=== PATIENT | female | born 1990 | race Caucasian/White ===

== ENCOUNTER 2020-11-08 05:07 | Inpatient (IN) | payer MEDICAID, SELFPAY ==
--- NOTE | 2020-11-02 17:26 | ANES.PREANE2 ---
Pre-Anesthetic Assessment Pre-Anesthetic Assessment: Proposed Procedure: Operation Date: 11/08/20 07:00 Proposed Procedures p Section Repeat Z34.83 Z98.891 [id number](Not Applicable) - Brando Thomason MD Was Beta Livia taken within 24 hours: N/A Was Clonidine taken within 24 hours: N/A Social: Social History: No alcohol and No tobacco Exam: Pre-Anes Outpt Exam: alert, oriented x 3, clear to auscultation bilaterally and regular rate & rhythm Airway: Submandibular: WNL Cervical ROM: WNL MP: 1 History/ROS: No significant complaints Pulmonary: Pulmonary: None reported CV/HEM: CV/HEM: None reported : : None reported Hepatic: Hepatic: None reported GI: GI: None reported Metabolic: Metabolic: None reported Musc/skel: Musc/skel: None reported Neuropsych: Neuropsych: None reported Anesthetic Plan: ASA status: 1 Anesthesia: Regional (specify below) Other: Spinal Data Anesthesia Cardiac Studies: No Data to Display
[2020-11-08] VITALS (23 sets, daily range): BP systolic 116–137; BP diastolic 64–106; PULSE 73–106; RESP 15–16; TEMP 36.4–36.8; O2SAT 97–100; BMI 38.9
--- NOTE | 2020-11-08 05:38 | P.HP_ITS ---
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 I saw the patient earlier in her . At that time we discussed the risks of a as well as a tubal ligation. We discussed the risk of bleeding, infection, and damage intra-abdominal organs. We also discussed the 1 200 chance of becoming again after a successful tubal ligation. The patient understands all these things and wishes to proceed with a low transverse section. The patient has had an unremarkable her labs were within normal limits. She is HIV negative, hepatitis B-, H hepatitis C negative. Her drug screen was within normal limits. Her glucose screen was within normal limits. She was GBS negative. Review of Systems General: Reports: 10 or more systems reviewed and unremarkable except in HPI and below Const: Reports: fatigue; Denies: fever(s) Eyes: Denies: change in vision Card: Denies: chest pain Musc: Reports: back pain Aramis/Lymph: Denies: easy bruising Medications/Allergies Home Medications Medication Instructions Recorded Confirmed Last Taken Type omeprazole 20 mg PO DAILY 11/08/20 11/08/20 11/07/20 19:00 History Allergies Allergy/AdvReac Type Severity Reaction Status Date / Time latex Allergy ALGY-Hives Verified 11/08/20 07:06 Vitals/I&O/Wt Last Vital Signs Pulse 104 H 11/08/20 05:29 BP 118/72 11/08/20 05:29 Physical Exam Const: COMMON NORMALS: patient oriented x3 and alert HENMT: COMMON NORMALS: moist oral mucous membranes HEAD & SCALP: normal to inspection Chest: COMMONS NORMALS: normal inspection of the chest Resp: COMMON NORMALS: clear to auscultation bilaterally AUSCULTATION: clear to auscultation bilaterally Cardio: COMMON NORMALS: regular rate and regular rhythm RATE: regular rate RHYTHM: regular rhythm GI: INSPECTION: Yes normal to inspection and Yes other (Gravid) Extremity: COMMON NORMALS: normal to inspection GENERAL: Yes edema (Trace) Neuro: COMMON NORMALS: patient oriented x3, moves all extremities and no sensory deficits noted SENSORIUM/ORIENTATION: Yes alert Psych: COMMON NORMALS: mental status grossly normal Skin: COMMON NORMALS: no rashes or lesions noted GENERAL SKIN EXAM: no rashes or lesions noted Data : 11/09/20 00:38 A&P Assessment and plan (1) History of : We will proceed with a scheduled section and a bilateral tubal ligation. I once again discussed the risk with the patient and her . They wish to proceed. Status: Acute (2) Sterilization: Status: Acute (3) 39 weeks gestation of : Status: Acute Attestations Medical Necessity Statement*: I anticipate routine and post C- section care. Coding Level of Care Code Acute Order Manager for [facility] Fwd Exam Comprehensive Diagnoses History of Z98.891 Sterilization Z30.2 39 weeks gestation of Z3A.39
[2020-11-08 05:51] LABS: Basophils # 0.1 10^3/uL (0.0-0.1); Basophils % 0.4 %; Eosinophils # 0.1 10^3/uL (0.0-0.8); Eosinophils % 0.8 %; Hematocrit 37.9 % (37.0-47.0); Hemoglobin 10.9 g/dL (11.5-15.3); Lymphocytes # 2.6 10^3/uL (0.8-4.8); Lymphocytes % 23.4 %; Mean Corpuscular HGB Conc 28.8 g/dL (30.0-36.0); Mean Corpuscular Hemoglobin 23.9 pg (28.0-34.0); Mean Corpuscular Volume 82.9 fL (81-99); Mean Platelet Volume 12.6 fL (7.4-10.4); Monocytes # 0.9 10^3/uL (0.2-0.9); Neutrophils # 7.52 10^3/uL (1.8-7.7); Nucleated Red Blood Cells % 0 %; Platelet Count 235 10^3/cmm (130-400); Red Blood Count 4.57 10^6/uL (4.1-5.3); Red Cell Distribution Width 21.1 % (12.1-15.1); White Blood Count 11.2 10^3/uL (4.0-10.0)
[2020-11-08] MEDS: citric acid-sodium citrate 30 mL UDC PO (07:06)
[2020-11-08] MEDS: metoclopramide 5 mg/mL SDV 2 mL 10 MG IVP (07:07)
[2020-11-08] MEDS: famotidine 20 mg/2 mL INJ IVP (07:07)
--- NOTE | 2020-11-08 07:38 | PC.NURSE ---
PT AMBULATED TO OR 1 WITHOUT DIFFICULTY. ACCOMPANIED BY THIS OIL WELL LOGGING ENGINEER.
--- NOTE | 2020-11-08 09:15 | P.OP_ITS ---
Operative Report Date of procedure: November 08, 2020 Pre-op Diagnosis: 1. Repeat section 2. Desires sterilization Post-op diagnosis: same Procedure Done: 1. Repeat lower transverse section 2. Intraoperative bilateral tubal ligation using a modified Fabio technique Specimens removed/disposition: 1. Male with a weight of 9 pounds 9 ounces and Apgars of 8 and 9 2. Placenta with a three-vessel cord delivered intact 3. Bilateral fallopian tube segments with the right segment being tagged Pathology: other Surgeon: Brando Thomason Anesthesia: Epidural (spinal) Estimated blood loss (mL): 1,200 Complications: none Condition: stable Disposition: floor (ob) Brief History: Refer to history and physical Procedure: The patient was brought back to the operating room where she was prepped and draped in usual sterile fashion. Anesthesia was found to be adequate. A lower transverse skin incision was then made with a #10 blade. I then dissected down to the underlying subcutaneous tissue until arriving at the prerectal fascia. The fascia was then nicked with the scalpel bilaterally. The fascial incisions were then carried laterally with Garcia scissors. Attention was then turned to the superior aspect of the incision which was grasped with kochers and tented up away from the underlying rectus abdominis muscles. The muscles were then dissected away from the fascia manually, and later with Garcia scissors. Attention was then turned to the inferior aspect of the incision, and the fascia was dissected away from the underlying muscle in similar fashion. The rectus abdominis muscles were then spread manually. The peritoneum was entered manually. Excellent visualization of the uterus was noted. A lower transverse uterine incision was then made with a #10 blade. Upon arriving at the intrauterine cavity, the uterine incision was then extended manually. The infant was noted to be in vertex position. After attempting to deliver the baby multiple times I elected to use a Kiwi vacuum and easily deliver the baby in about 10 seconds.. After delivery of the head, the mouth and nose were suctioned at the site of the incision. There was no meconium. There was no nuchal cord. The remainder of the body was then delivered and placed on the abdomen. The cord was cut and clamped. The baby was then handed to the waiting nurse. The placenta was removed intact. The uterus was externalized. The intrauterine cavity was cleansed of any remaining debris. The uterine incision was reapproximated in 2 layers. The first layer was performed with 0 Vicryl in a running locked stitch. The second layer was an imbricating stitch also using 0 Vicryl. Attention was then turned to the left fallopian tube which was ligated cut and cauterized using a modified [place] technique with 0 plain gut. Attention was then turned to the right fallopian tube which was also ligated cut and cauterized in similar fashion. The uterine incision was then once again reexamined. The uterus was replaced into the abdomen. The peritoneum was then irrigated with warm saline. I reexamined the uterine incision and found it to be hemostatic. The rectus abdominis muscles were then reapproximated using 0 Vicryl in a running stitch. The fascia was then reapproximated using 0 Vicryl in running stitch. The skin was reapproximated using ilir. A sterile dressing was placed. All counts were correct x2. Both the mother and baby were in stable condition.
--- NOTE | 2020-11-08 09:45 | PC.NURSE ---
PT TRANSFERRED FROM OR 1 TO OB 10 VIA BED. PT ACCOMPANIED BY THIS SYSTEMS TEST ENGINEER. PT TOLERATED WELL.
[2020-11-08] MEDS: ondansetron 2 mg/ML SDV 2 mL 4 MG IVP ×2 (10:04→14:14)
[2020-11-08] MEDS: promethazine 25 mg/mL SDV 1 mL IM (11:09)
[2020-11-08] MEDS: dextrose 5%-lactated ringers 1,000 ML 125 ML IV ×2 (11:58→21:32)
[2020-11-08] MEDS: sodium chloride 0.9% 500 ML 999 ML IV ×2 (12:04→16:35)
[2020-11-08] MEDS: ibuprofen 800 mg tablet PO ×2 (16:35→20:58)
--- NOTE | 2020-11-08 17:42 | ANE.PACU2 ---
Inpatient post-anesthesia follow up: Airway intact: Yes Vital signs: Temperature 98.0 F Pulse Rate 92 Respiratory Rate 16 Blood Pressure 117/80 Pulse Oximetry 98 Oxygen Delivery Me thod Room Air Oxygen Flow Rate Fraction of Inspir ed Oxygen Hydration adequate: Yes Nausea and vomiting: No Pain level: 2 Mental status: Baseline
--- NOTE | 2020-11-08 17:45 | PC.NURSE ---
pt ambulated from chair to bathroom without difficulty.
[2020-11-09 00:42] LABS: Hematocrit 26.9 % (37.0-47.0); Hemoglobin 8.5 g/dL (11.5-15.3); Mean Corpuscular HGB Conc 31.6 g/dL (30.0-36.0); Mean Corpuscular Hemoglobin 24.2 pg (28.0-34.0); Mean Corpuscular Volume 76.6 fL (81-99); Mean Platelet Volume 12.7 fL (7.4-10.4); Platelet Count 184 10^3/cmm (130-400); Red Blood Count 3.51 10^6/uL (4.1-5.3); Red Cell Distribution Width 13.6 % (12.1-15.1); White Blood Count 13.3 10^3/uL (4.0-10.0)
[2020-11-09] MEDS: acetaminophen 325 mg Tablet 650 MG PO ×2 (01:55→06:43)
[2020-11-09 04:30] VITALS: BP 105/70; PULSE 79; RESP 14; TEMP 36.9; O2SAT 97
--- NOTE | 2020-11-09 07:13 | P.DS_ITS ---
Discharge Providers ALUMINUM SIDING APPLICATOR Date of Admission: 11/08/20 05:07 Date of Discharge: 11/09/20 Attending Provider at Admission: Brando Thomason MD Attending Provider at Discharge: Brando Thomason MD Primary Care Provider: Garth Miller MD Diagnoses at Discharge Discharge Diagnosis (1) History of : Status: Acute (2) Sterilization: Status: Acute (3) 39 weeks gestation of : Status: Acute Reason for Visit Reason for Visit: repeat c section Hospital Course Hospital Course The patient presented to the hospital yesterday for a repeat section and a bilateral tubal ligation. The procedure was unremarkable. Her course has also been unremarkable. Her bleeding has been within normal limits. Her pain is been well controlled. She is chosen not to use any narcotics for pain control. Her vital signs have been stable. Initially, she did have reduced urine output, but that resolved with IV boluses. She passed flatus yesterday afternoon. She has been breast-feeding well. Information Peripartum Data: Delivery Method: Physical Exam Narrative: EXAM NARRATIVE: She is in no acute distress Lungs are clear auscultation bilaterally Her heart has a regular rate and rhythm Her fundus is below the umbilicus and firm Her dressing is clean, dry and intact Her extremities have trace edema Urinary Catheter Management^: Hernandez: Cath Placed During This Visit: yes Reason for Continuing Indwelling Catheter: Perioperative Use in Selected Surgeries Urinary Catheter Date of Insertion: 11/08/20 Urinary Catheter Time of Insertion: 08:05 Discharge Data Data Completed and Pending: Pending at discharge Category Date Time Status Pathology: Surgic al [PTH] Routine Pth 11/08/20 08:30 Received Labs from last 24 hours 11/09/20 00:38 WBC 13.3 H RBC 3.51 L Hgb 8.5 L Hct 26.9 L MCV 76.6 L D MCH 24.2 L MCHC 31.6 D RDW 13.6 Plt Count 184 MPV 12.7 H Vitals: Last Vital Signs Temp 98.1 F 11/08/20 18:00 Pulse 73 11/08/20 22:00 Resp 15 11/08/20 22:00 BP 116/77 11/08/20 22:00 Pulse Ox 98 11/08/20 22:00 Discharge Plan Discharge Patient Disposition: Home Condition: Stable Prescriptions: New ibuprofen 800 mg Tablet 800 mg PO TID Qty: 45 RF: 0 DOK 100 mg Capsule 100 mg PO BID Qty: 14 RF: 0 ferrous sulfate 325 mg (65 mg iron) Tablet,Delayed Release (Dr/Ec) 325 mg PO BID Qty: 60 RF: 0 -U 106.5-1 mg Capsule 1 cap PO BREAKFAST Qty: 90 RF: 3 Continued omeprazole 20 mg Tablet,Delayed Release (Dr/Ec) 20 mg PO DAILY RF: 0 Discharge Orders: Discharge Order (Routine); Ordered 11/09/20 Ordered By: Brando Thomason Referrals: Brando Thomason MD [Physician] - 4-7 days (Also set up appointment with Dr. Miller in 6 weeks for check) Discharge Diet: Usual diet Discharge Activity: Limit activity as instructed Discharge Attestations ALUMINUM SIDING APPLICATOR Time Spent in Discharge Care*: less than 30 min Specific Discharge Activities: Specific discharge activities: educating patient Coding Level of Care Code Acute Stripper Apprentice for g Fwd Diagnoses History of Z98.891 Sterilization Z30.2 39 weeks gestation of Z3A.39
[2020-11-09] MEDS: docusate sodium 100 mg Capsule PO (08:42)
[2020-11-09] MEDS: ibuprofen 800 mg tablet PO (08:42)
[2020-11-09] MEDS: prenatal vitamin Capsule 1 CAP PO (08:42)
[2020-11-09 12:00] VITALS: BP 105/70; PULSE 79; RESP 14; TEMP 36.9; O2SAT 97
== END 2020-11-09 12:05 | disposition home or self-care (01) | DRG 785 ==
PROVIDERS: Admitting Provider Family Medicine; PCP Family Medicine; Visit Provider Family Medicine
PROC: 10D00Z1 Extraction of Products of Conception, Low, Open Approach (ICD-10-PCS; CPT 59514; principal; 2020-11-08 07:30)
DX: O34.211 Maternal care for low transverse scar from previous cesarean delivery (principal); Z3A.39 39 weeks gestation of pregnancy; Z37.0 Single live birth; Z30.2 Encounter for sterilization
CPT/HCPCS: 12345; 36415; 58611; 59025; 59409; 85025; 85027; 88302; 96372; 96374; 96375; 98960; J0690; J2405; J2550; J2765; J3490; J7040

== ENCOUNTER 2022-02-14 14:33 | Outpatient (CLI) | payer MEDICAID, SELFPAY ==
[2022-02-14 15:29] LABS: Basophils # 0.1 10^3/uL (0.0-0.1); Basophils % 0.7 %; Eosinophils # 0.1 10^3/uL (0.0-0.8); Hematocrit 40.9 % (37.0-47.0); Hemoglobin 13.2 g/dL (11.5-15.3); Lymphocytes # 2.3 10^3/uL (0.8-4.8); Lymphocytes % 31.8 %; Mean Corpuscular HGB Conc 32.3 g/dL (30.0-36.0); Mean Corpuscular Hemoglobin 26.1 pg (28.0-34.0); Mean Corpuscular Volume 80.8 fl (81-99); Mean Platelet Volume 13.1 fL (7.4-10.4); Monocytes # 0.6 10^3/uL (0.2-0.9); Monocytes % 8.7 %; Neutrophils # 4.11 10^3/uL (1.8-7.7); Neutrophils % 57.5 %; Nucleated Red Blood Cells % 0 %; Platelet Count 256 10^3/cmm (130-400); Red Blood Count 5.06 10^6/uL (4.1-5.3); Red Cell Distribution Width 14.4 % (12.1-15.1); White Blood Count 7.1 10^3/uL (4.0-10.0)
[2022-02-14 16:05] LABS: Slide Review Slide Review Perform
[2022-02-14 17:10] LABS: 25 Hydroxy Vitamin D 30 ng/mL (30-100); Alanine Aminotransferase 26 U/L (0-33); Albumin Level 4.2 g/dL (3.5-5.2); Alkaline Phosphatase 86 U/L (35-105); Anion Gap 17.4 (5-19); Aspartate Amino Transferase 26 U/L (0-32); Blood Urea Nitrogen 10 mg/dL (6-20); Calcium 8.8 mg/dL (8.5-10.5); Carbon Dioxide 24 mmol/L (22-29); Chloride 102 mmol/L (98-107); Chol HDL Ratio 3.58 mg/dL (0.0-4.40); Cholesterol 136 mg/dL (0-200); Globulin 2.5 g/dL (1.3-4.6); Glomerular Filtration Rate 98.9 mL/min (90-130); Glucose 96 mg/dL (65-115); HDL Cholesterol 38 mg/dL (60-100); LDL Cholesterol Calculated 53 mg/dL (50-129); LDL HDL Ratio 1.39 RATIO (0.00-3.22); Osmolality Calculated 289 mOsm/kg (285-295); Potassium 3.4 mmol/L (3.5-5.1); Sodium 140 mmol/L (136-145); Thyroid Stimulating Hormone 0.62 uIU/mL (0.27-4.20); Total Bilirubin 0.4 mg/dL (0.15-1.2); Total Protein 6.7 g/dL (6.6-8.7); Triglycerides 226 mg/dL (0-150)
== END 2022-02-14 14:34 | disposition home or self-care (01) ==
PROVIDERS: PCP Family Medicine; Visit Provider Family Medicine
DX: Z13.220 Encounter for screening for lipoid disorders (principal); R79.9 Abnormal finding of blood chemistry, unspecified
CPT/HCPCS: 80053; 80061; 82306; 84443; 85025

== ENCOUNTER 2024-02-01 08:48 | Outpatient (CLI) | payer OTHER, SELFPAY ==
[2024-02-01 09:48] LABS: HIV 1 & 2 Antibody Non-Reactive (Non-Reactiv); HIV 1 & 2 Antigen Non-Reactive (Non-Reactiv)
[2024-02-01 09:56] LABS: Hepatitis C Virus Antibody Non-Reactive (Nonreactive)
[2024-02-02 18:09] LABS: Chlamydia Trachomatis RNA TMA NOT DETECTED (NOT DETECTED); Neisseria Gonorrhoeae RNA, TMA NOT DETECTED (NOT DETECTED)
== END 2024-02-01 08:49 | disposition home or self-care (01) ==
LOC: LAB 08:52
PROVIDERS: PCP Family Medicine; Visit Provider Family Medicine
DX: Z11.59 Encounter for screening for other viral diseases (principal); Z11.4 Encounter for screening for human immunodeficiency virus [HIV]; Z20.2 Contact with and (suspected) exposure to infections with a predominantly sexual mode of transmission
CPT/HCPCS: 36415; 86803; 87491; 87591; 87806

== ENCOUNTER 2024-03-21 07:25 | Outpatient (CLI) | payer OTHER, SELFPAY ==
[2024-03-21 08:16] LABS: Estradiol 486.8 pg/mL; Luteinizing Hormone 2.9 mIU/mL (0.5-41.7); Progesterone 0.308 ng/mL
== END 2024-03-21 07:26 | disposition home or self-care (01) ==
LOC: LAB 07:26
PROVIDERS: PCP Family Medicine; Visit Provider Obstetrics & Gynecology
DX: E28.8 Other ovarian dysfunction (principal)
CPT/HCPCS: 36415; 82670; 83002; 84144

== ENCOUNTER 2024-05-23 10:50 | Outpatient (CLI) | payer OTHER, SELFPAY | END 2024-05-23 10:51 | disposition home or self-care (01) | LOC: LAB 10:51 | PROVIDERS: PCP Family Medicine; Visit Provider Family Medicine | DX: N98.2 Complications of attempted introduction of fertilized ovum following in vitro fertilization (principal) | CPT/HCPCS: 36415; 84702 ==

== ENCOUNTER 2024-05-27 07:22 | Outpatient (CLI) | payer OTHER, SELFPAY ==
[2024-05-27 08:04] LABS: HCG Quantitative 46.44 mIU/mL
== END 2024-05-27 07:23 | disposition home or self-care (01) ==
LOC: LAB 07:24
PROVIDERS: PCP Family Medicine; Visit Provider Obstetrics & Gynecology
DX: Z32.02 Encounter for pregnancy test, result negative (principal)
CPT/HCPCS: 36415; 84702

== ENCOUNTER 2024-05-29 07:13 | Outpatient (CLI) | payer OTHER, SELFPAY | END 2024-05-29 07:14 | disposition home or self-care (01) | LOC: LAB 07:15 | PROVIDERS: PCP Family Medicine; Visit Provider Obstetrics & Gynecology | DX: Z01.89 Encounter for other specified special examinations (principal) | CPT/HCPCS: 36415; 84702 ==

== ENCOUNTER 2024-06-01 05:58 | Emergency (ER) | payer OTHER, MEDICAID, SELFPAY ==
--- NOTE | 2024-06-01 06:01 | USR_ITS ---
PROCEDURE INFORMATION: Exam: US , Transvaginal Exam date and time: 06/01/2024 7:15 AM Age: 34 years old Clinical indication: Lmp or gestational age (in weeks): 4w4d; Antepartum complications; Bleeding; Additional info: Threatened miscarriage LABS AND CLINICAL REPORTS: Gestational age (Established): 4 w 4 d Estimated due date (Established): 02/04/2025 TECHNIQUE: Imaging protocol: Real-time transvaginal obstetrical ultrasound of the maternal pelvis with image documentation. Transvaginal imaging was used for better evaluation of the fetus, adnexa, and/or cervix. 189image(s) are provided. COMPARISON: [place] [id number] 08/23/2020 8:48 AM FINDINGS: MATERNAL: Uterus: Uterus measures 7.3 x 4.9 x 4.2 cm. Endometrial stripe thickness is around 1.1 cm. No significant central uterine canal fluid collections are appreciated. The uterine parenchymal echogenicity appears relatively homogeneous overall. No localized fluid to suggest intrauterine gestational changes are currently appreciated. Cervix: Cervical length measures 4.2 cm. There are some cervical nabothian cystic changes suggested. No cervix level fluid collections are currently appreciated. Right ovary/adnexa: There are some subcentimeter right ovarian follicular cystic changes present. The right ovary measures 2.5 x 2.1 x 2.1 cm with some color flow present. Left ovary/adnexa: The left ovary measures 2.8 x 2.6 x 1.8 cm with some color flow present. There are some subcentimeter left ovarian follicular cystic changes present. Bowel: There is some bowel-gas artifact. Intraperitoneal space: No significant free fluid collections are appreciated. US/US OB <=14 wk fetus w transvag IMPRESSION: 1. No evidence of intrauterine or extrauterine gestational changes are currently appreciated. Consider beta HCG, clinical evaluation. 2. Ovarian color flow is demonstrated bilaterally. 3. No significant free fluid collections are appreciated.
[2024-06-01 06:35] VITALS: BP 136/87; PULSE 103; RESP 19; TEMP 36.6; O2SAT 99
[2024-06-01 06:45] LABS: Basophils # 0.1 10^3/uL (0.0-0.1); Basophils % 1.2 %; Eosinophils % 0.7 %; Hematocrit 41.7 % (36-47); Lymphocytes # 1.8 10^3/uL (0.8-4.8); Mean Corpuscular HGB Conc 31.9 g/dL (30-55); Mean Corpuscular Hemoglobin 25.5 pg (27-33); Mean Platelet Volume 11.9 fL (7.4-10.4); Monocytes # 0.4 10^3/uL (0.2-0.9); Monocytes % 7.6 %; Neutrophils # 3.45 10^3/uL (1.8-7.7); Neutrophils % 59.3 %; Nucleated Red Blood Cells % 0 %; Platelet Count 290 10^3/cmm (157-399); Red Blood Count 5.21 10^6/uL (3.85-5.65); Red Cell Distribution Width 13.5 % (12.1-15.1); White Blood Count 5.81 10^3/uL (3.29-11.43)
--- NOTE | 2024-06-01 06:46 | W.ED.FEMALGU ---
HPI - Female Genitourinary General: Chief complaint: Urogenital-Female Stated complaint: 4 weeks , bleeding Time Seen by Provider: 06/01/24 06:41 Source: patient Mode of arrival: ambulatory Limitations: no limitations History of Present Illness: 34-year-old female is currently 4 weeks she states she has been going through IVF states she had had some bleeding that started last night. She states that she has passed some very small clots no heavy bleeding. She denies any severe pain denies any vomiting or diarrhea. Associated symptoms: Deny abdominal pain, headache(s) or nausea Related Data Home Medications Medication Instructions Recorded Confirmed Jean-Claude Niagen 300 mg PO DAILY 03/10/24 03/10/24 cholecalciferol (vitamin D3) 25 25 mcg PO DAILY 03/10/24 03/10/24 mcg (1,000 unit) capsule coenzyme Q10 300 mg capsule (Co 600 mg PO DAILY 03/10/24 03/10/24 Q-10) methylfolate 2 mg PO DAILY 03/10/24 omega-3 fatty acids 1,000 mg 2,000 mg PO DAILY 03/10/24 03/10/24 capsule prasterone (dhea) 25 mg tablet 25 mg PO DAILY 03/10/24 03/10/24 (DHEA) vitamin#30 30 mg iron-10 1 cap PO DAILY 03/10/24 03/10/24 mg iron-folic acid 1 mg-omg3 capsule vitamin B complex 1 cap PO DAILY 03/10/24 03/10/24 Previous Rx's Medication Instructions Recorded cetrorelix 0.25 mg subcutaneous 0.25 mg SUBCUT DAILY #1 ea 03/10/24 kit (Cetrotide) chorionic gonadotropin, human 1,000 - 10,000 unit IM ONCE #1 ea 03/10/24 10,000 unit IM powder for solution follitropin angie 300 unit (0.5 mL) SUBCUT DAILY 03/10/24 #1.5 mL leuprolide 1 mg/0.2 mL 1 mg (0.2 mL) SUBCUT DAILY #1 ea 03/10/24 subcutaneous kit menotropins 75 unit subcutaneous 75 unit SUBCUT DAILY #10 ea 03/10/24 solution (Menopur) Allergies Allergy/AdvReac Type Severity Reaction Status Date / Time latex Allergy ALGY-Hives Verified 03/10/24 08:32 Review of Systems Const: Denies: fever(s), chills, body aches or change in appetite ENMT: Denies: throat pain or dental pain Card: Denies: chest pain Resp: Denies: dyspnea GI: Denies: abdominal pain, nausea or vomiting : Reports: vaginal bleeding Musc: Denies: neck pain or back pain Neuro: Denies: headache(s) Physical Exam Const: COMMON NORMALS: no acute distress, patient oriented x3 and healthy appearing HENMT: COMMON NORMALS: normocephalic and atraumatic HEAD & SCALP: normocephalic and atraumatic Eye: COMMON NORMALS: conjunctivae normal CONJUNCTIVA: Yes conjunctivae normal Neck/C-Spine: COMMON NORMALS: full ROM and supple Chest: COMMONS NORMALS: normal inspection of the chest Resp: COMMON NORMALS: normal respiratory effort Cardio: COMMON NORMALS: regular rate RATE: regular rate GI: COMMON NORMALS: Normal to inspection, nondistended, normoactive bowel sounds present, Soft to palpation, non-tender and no masses PALPATION: Yes Soft to palpation Extremity: COMMON NORMALS: normal to inspection and full ROM Neuro: COMMON NORMALS: patient oriented x3, moves all extremities and no focal motor deficits Psych: COMMON NORMALS: mental status grossly normal, Normal thought process present and cooperative THOUGHT PROCESS: Normal thought process present Skin: COMMON NORMALS: no rashes or lesions noted and no wounds GENERAL SKIN EXAM: no rashes or lesions noted Course Vital Signs: Vital signs: Vital Signs Temperature 98 F 06/01/24 06:35 Pulse Rate 103 H 06/01/24 06:35 Respiratory Rate 19 H 06/01/24 06:35 Blood Pressure 136/87 06/01/24 06:35 Pulse Oximetry 99 06/01/24 06:35 [facility] - Female Medical Decision Making Patient presents here with a threatened miscarriage quantitative still quite low she is very early ultrasound showed no definite IUP no signs of ectopic she has appoint with her OB tomorrow she is to follow-up as scheduled return if worsening she understands agrees to plan Medical Records I reviewed the patient's medical records. Lab Data I reviewed the patient's lab results. 06/01/24 06:30 Radiology Impressions Obstetrics Ultrasound 06/01/24 06:01 IMPRESSION: 1. No evidence of intrauterine or extrauterine gestational changes are currently appreciated. Consider beta HCG, clinical evaluation. 2. Ovarian color flow is demonstrated bilaterally. 3. No significant free fluid collections are appreciated. Laboratory Results WBC 5.81 10^3/uL (3.29-11.43) 06/01/24 06:30 RBC 5.21 10^6/uL (3.85-5.65) 06/01/24 06:30 Hgb 13.30 g/dL (11.27-16.99) 06/01/24 06:30 Hct 41.7 % (36-47) 06/01/24 06:30 MCV 80.0 fl (85-98) L 06/01/24 06:30 MCH 25.5 pg (27-33) L 06/01/24 06:30 MCHC 31.9 g/dL (30-55) 06/01/24 06:30 RDW 13.5 % (12.1-15.1) 06/01/24 06:30 Plt Count 290 10^3/cmm (157-399) 06/01/24 06:30 MPV 11.9 fL (7.4-10.4) H 06/01/24 06:30 Neut % (Auto) 59.3 % 06/01/24 06:30 Lymph % (Auto) 31.0 % 06/01/24 06:30 [place] % (Auto) 7.6 % 06/01/24 06:30 Eos % (Auto) 0.7 % 06/01/24 06:30 Baso % (Auto) 1.2 % 06/01/24 06:30 Neut # (Auto) 3.45 10^3/uL (1.8-7.7) 06/01/24 06:30 Lymph # (Auto) 1.8 10^3/uL (0.8-4.8) 06/01/24 06:30 [place] # (Auto) 0.4 10^3/uL (0.2-0.9) 06/01/24 06:30 Eos # (Auto) 0.0 10^3/uL (0.0-0.8) 06/01/24 06:30 Baso # (Auto) 0.1 10^3/uL (0.0-0.1) 06/01/24 06:30 Nucleated RBC % (auto) 0 % 06/01/24 06:30 Nucleated RBCs # 0.0 /100WBC 06/01/24 06:30 Ser , Semi-Qnt 522.10 mIU/mL 06/01/24 06:30 Blood Type O Positive 06/01/24 06:30 Rho(D) Type Rh positive 06/01/24 06:30 Antibody Screen Negative 06/01/24 06:30 All radiology interpretation(s) finalized by discharge Discharge Plan Discharge Patient Disposition: Home Clinical Impression: Threatened miscarriage Condition: Stable Prescriptions: No Action PNV #[id number] acid-omega3 30 mg iron-10 mg iron-1 mg capsule 1 cap PO DAILY vitamin B complex Capsule 1 cap PO DAILY omega-3 fatty acids 1,000 mg capsule 2,000 mg PO DAILY cholecalciferol (vitamin D3) 25 mcg (1,000 unit) capsule 25 mcg PO DAILY prasterone (dhea) [DHEA] 25 mg tablet 25 mg PO DAILY Jean-Claude Niagen 300 mg tablet 300 mg PO DAILY Co Q-10 300 mg capsule 600 mg PO DAILY methylfolate 2 mg 2 mg PO DAILY cetrorelix [Cetrotide] 0.25 mg kit 0.25 mg SUBCUT DAILY Qty: 1 5RF Rx Instructions: inject subcutaneously once daily as directed follitropin angie 900/1.5 unit/mL pen injector 300 unit SUBCUT DAILY Qty: 1.5 5RF Rx Instructions: inject 300 units subcutaneously once daily as directed Menopur 75 unit recon soln 75 unit SUBCUT DAILY Qty: 10 3RF Rx Instructions: inject 75 units subcutaneously once daily (for 8-13 days) as directed chorionic gonadotropin, human 10,000 unit recon soln 1,000 - 10,000 unit IM ONCE Qty: 1 1RF Rx Instructions: inject 1,000-10,000 units as directed by Dr. Mayes's office leuprolide 1 mg/0.2 mL kit 1 mg SUBCUT DAILY Qty: 1 1RF Rx Instructions: inject 0.8 mL under the skin one time when directed by Dr. Mayes Discharge Orders: Discharge ED (Routine); Ordered 06/01/24 Ordered By: Kisha Amezquita Referrals: Kael Dangelo DO [Primary Care Provider] - Lizandro Marquis MD [Physician] - 4-7 days Discharge Diet: Advance as tolerated Discharge Activity: Resume usual activity Patient Instructions: Threatened Miscarriage (ED) Coding Level of Care Code ED Incident Response Consultant for Carlos Eduardo Bright
[2024-06-01 08:15] VITALS: BP 142/92; PULSE 109; O2SAT 96
== END 2024-06-01 08:15 | disposition home or self-care (01) ==
PROVIDERS: Emergency Provider Emergency Medicine; PCP Family Medicine
DX: O20.0 Threatened abortion (principal); Z3A.01 Less than 8 weeks gestation of pregnancy
CPT/HCPCS: 36415; 76801; 76817; 84702; 85025; 86850; 86900; 99284

== ENCOUNTER → 2024-06-02 15:02 | Outpatient (BNVA) | payer OTHER, MEDICAID, SELFPAY | PROVIDERS: PCP Family Medicine; Visit Provider Nurse Practitioner Women's Health | DX: O03.9 Complete or unspecified spontaneous abortion without complication (principal); Z32.01 Encounter for pregnancy test, result positive | CPT/HCPCS: 81025; 84144; 84702 ==

== ENCOUNTER 2024-06-03 07:37 | Outpatient (CLI) | payer OTHER, SELFPAY | END 2024-06-03 07:38 | disposition home or self-care (01) | LOC: LAB 07:38 | PROVIDERS: PCP Family Medicine; Visit Provider Obstetrics & Gynecology | DX: O20.0 Threatened abortion (principal) | CPT/HCPCS: 36415; 84702 ==

== ENCOUNTER 2024-06-05 07:21 | Outpatient (CLI) | payer OTHER, SELFPAY ==
[2024-06-05 09:00] LABS: Progesterone 26.75 ng/mL
== END 2024-06-05 07:22 | disposition home or self-care (01) ==
LOC: LAB 07:22
PROVIDERS: PCP Family Medicine; Visit Provider Nurse Practitioner Women's Health
DX: O20.0 Threatened abortion (principal)
CPT/HCPCS: 36415; 84144; 84702

== ENCOUNTER 2024-06-28 14:10 | Emergency (ER) | payer OTHER, SELFPAY ==
[2024-06-28 14:20] VITALS: BP 145/96; PULSE 85; RESP 16; TEMP 36.4; O2SAT 100; BMI 28.6
--- NOTE | 2024-06-28 15:04 | ED_ITS ---
HPI - 2 General: Chief complaint: OB/Uterine Contractions Stated complaint: spotting 8 wk preg Time Seen by Provider: 06/28/24 14:45 History of Present Illness: 34-year-old female presents to the [facility] ency room with complaint of vaginal bleeding. Patient is G5, P4 approximately 8 weeks 3 days by IVF she has been on progesterone they are starting to taper it off. She was seen in [place] for this she is planning to transition her care locally to Dr. Thomason. She has known subchorionic hemorrhage she passed a clot today and was concerned. Associated symptoms: Deny abdominal pain or dysuria Related Data Home Medications Medication Instructions Recorded Confirmed Jean-Claude Niagen 300 mg PO DAILY 03/10/24 06/02/24 cholecalciferol (vitamin D3) 25 25 mcg PO DAILY 03/10/24 06/02/24 mcg (1,000 unit) capsule coenzyme Q10 300 mg capsule (Co 600 mg PO DAILY 03/10/24 06/02/24 Q-10) methylfolate 2 mg PO DAILY 03/10/24 06/02/24 omega-3 fatty acids 1,000 mg 2,000 mg PO DAILY 03/10/24 06/02/24 capsule prasterone (dhea) 25 mg tablet 25 mg PO DAILY 03/10/24 06/02/24 (DHEA) vitamin#30 30 mg iron-10 1 cap PO DAILY 03/10/24 06/02/24 mg iron-folic acid 1 mg-omg3 capsule vitamin B complex 1 cap PO DAILY 03/10/24 06/02/24 Previous Rx's Medication Instructions Recorded cetrorelix 0.25 mg subcutaneous 0.25 mg SUBCUT DAILY #1 ea 03/10/24 kit (Cetrotide) chorionic gonadotropin, human 1,000 - 10,000 unit IM ONCE #1 ea 03/10/24 10,000 unit IM powder for solution follitropin angie 300 unit (0.5 mL) SUBCUT DAILY 03/10/24 #1.5 mL leuprolide 1 mg/0.2 mL 1 mg (0.2 mL) SUBCUT DAILY #1 ea 03/10/24 subcutaneous kit menotropins 75 unit subcutaneous 75 unit SUBCUT DAILY #10 ea 03/10/24 solution (Menopur) Allergies Allergy/AdvReac Type Severity Reaction Status Date / Time latex Allergy ALGY-Hives Verified 06/02/24 11:56 Review of Systems 2 Const: Denies: fever(s) or chills Card: Denies: chest pain Resp: Denies: dyspnea GI: Denies: abdominal pain : Denies: dysuria, urinary frequency or urinary urgency Musc: Denies: neck pain or back pain Skin/Breast: Denies: rash PFSH ED 2 PFSH: Medical History (Updated 06/28/24 @ 17:45 by Pool Null DO) Bleeding in early Family History Denies family history of Ovarian cancer Diabetes Heart disease Breast cancer Hypertension Uterine cancer Thyroid disease Stroke Social History Smoking and tobacco/nicotine status: current every day tobacco/nicotine user (VAPE 06/2023 CIG 2013) Physical Exam 2 Const: COMMON NORMALS: no acute distress GENERAL APPEARANCE: cooperative and comfortable ORIENTATION/CONSCIOUSNESS: Yes awake, Yes oriented to person, Yes oriented to place and Yes oriented to time HENMT: COMMON NORMALS: normocephalic, atraumatic and hearing grossly normal bilaterally HEAD & SCALP: normocephalic and atraumatic Neuro: SENSORIUM/ORIENTATION: Yes oriented to person, Yes oriented to place and Yes oriented to time Skin: COMMON NORMALS: no rashes or lesions noted GENERAL SKIN EXAM: no rashes or lesions noted Course 2 Vital Signs: Vital signs: Vital Signs Temperature 97.5 F L 06/28/24 14:20 Pulse Rate 80 06/28/24 15:24 Respiratory Rate 16 06/28/24 14:20 Blood Pressure 145/96 06/28/24 14:20 Pulse Oximetry 100 06/28/24 15:24 Oxygen Delivery Me thod Room Air 06/28/24 14:20 MDM - OB/Uterine Contractions Medical Decision Making CBC and CMP unremarkable. Progesterone greater than 60. Her beta-hCG is climbed to 59,000. UA a is negative. Ultrasound confirms intrauterine with good heart tones. There is a subchorionic hemorrhage which is described as small consistent with her previous ultrasound. Suspect that this is the source of her bleeding. She is concerned about continuing the progesterone. With her level such as it is taking extra dose not likely to be helpful recommend that she contact her OB team from [place] regarding this. Will discharge patient home continue previous prescriptions as prescribed by her physicians. I advised her there is potential she could pass little more blood with a subchorionic hemorrhage that was seen. Contact her primary OB us if she is able on Sunday. Medical Records I reviewed the patient's medical records. Lab Data I reviewed the patient's lab results. 06/28/24 15:09 06/28/24 15:09 Radiology Impressions Obstetrics Ultrasound 06/28/24 15:05 IMPRESSION: Single living intrauterine measuring 8 weeks and 5 days, compatible with provided date by LMP. Small volume of subchorionic hemorrhage. Attention on follow-up imaging. Laboratory Results WBC 10.26 10^3/uL (3.29-11.43) 06/28/24 15:09 RBC 5.05 10^6/uL (3.85-5.65) 06/28/24 15:09 Hgb 13.20 g/dL (11.27-16.99) 06/28/24 15:09 Hct 39.7 % (36-47) 06/28/24 15:09 MCV 78.6 fl (85-98) L 06/28/24 15:09 MCH 26.1 pg (27-33) L 06/28/24 15:09 MCHC 33.2 g/dL (30-55) 06/28/24 15:09 RDW 13.2 % (12.1-15.1) 06/28/24 15:09 Plt Count 267 10^3/cmm (157-399) 06/28/24 15:09 MPV 11.5 fL (7.4-10.4) H 06/28/24 15:09 Neut % (Auto) 65.0 % 06/28/24 15:09 Lymph % (Auto) 24.3 % 06/28/24 15:09 [place] % (Auto) 8.9 % 06/28/24 15:09 Eos % (Auto) 0.8 % 06/28/24 15:09 Baso % (Auto) 0.7 % 06/28/24 15:09 Neut # (Auto) 6.68 10^3/uL (1.8-7.7) 06/28/24 15:09 Lymph # (Auto) 2.5 10^3/uL (0.8-4.8) 06/28/24 15:09 [place] # (Auto) 0.9 10^3/uL (0.2-0.9) 06/28/24 15:09 Eos # (Auto) 0.1 10^3/uL (0.0-0.8) 06/28/24 15:09 Baso # (Auto) 0.1 10^3/uL (0.0-0.1) 06/28/24 15:09 Nucleated RBC % (auto) 0 % 06/28/24 15:09 Nucleated RBCs # 0.0 /100WBC 06/28/24 15:09 Sodium 135 mmol/L (136-145) L 06/28/24 15:09 Potassium 3.9 mmol/L (3.5-5.1) 06/28/24 15:09 Chloride 98 mmol/L (98-107) 06/28/24 15:09 Carbon Dioxide 20 mmol/L (22-29) L 06/28/24 15:09 Anion Gap 20.9 (5-19) H 06/28/24 15:09 BUN 7 mg/dL (6-20) 06/28/24 15:09 Creatinine 0.6 mg/dL (0.5-0.9) 06/28/24 15:09 GFR Calculation 115.9 mL/min (90-130) 06/28/24 15:09 Glucose 95 mg/dL (65-115) 06/28/24 15:09 Calculated Osmolality 278 mOsm/kg (285-295) L 06/28/24 15:09 Calcium 9.6 mg/dL (8.5-10.5) 06/28/24 15:09 Total Bilirubin 0.2 mg/dL (0.15-1.2) 06/28/24 15:09 AST 14 U/L (0-32) 06/28/24 15:09 ALT 12 U/L (0-33) 06/28/24 15:09 Alkaline Phosphatase 83 U/L (35-105) 06/28/24 15:09 Total Protein 7.3 g/dL (6.6-8.7) 06/28/24 15:09 Albumin 4.1 g/dL (3.5-5.2) 06/28/24 15:09 Globulin 3.2 g/dL (1.3-4.6) 06/28/24 15:09 Progesterone > 60 ng/mL 06/28/24 15:09 Ser , Semi-Qnt 58883.00 mIU/mL 06/28/24 15:09 Urine Color Yellow (Yellow) 06/28/24 15:21 Urine Appearance Clear (CLEAR) 06/28/24 15:21 Urine pH 5.5 (5-7) 06/28/24 15:21 Ur Specific [place] 1.021 (1.005-1.030) 06/28/24 15:21 Urine Protein Negative (Negative) 06/28/24 15:21 Urine Glucose (UA) Negative (Normal) 06/28/24 15:21 Urine Ketones 1+ (Negative) H 06/28/24 15:21 Urine Blood Negative (Negative) 06/28/24 15:21 Urine Nitrate Negative (Negative) 06/28/24 15:21 Urine Bilirubin Negative (Negative) 06/28/24 15:21 Urine Urobilinogen 0.2 mg/dL (Negative) 06/28/24 15:21 Ur Leukocyte Esterase Negative (Negative) 06/28/24 15:21 Urine RBC 0-2 /hpf (0-2) 06/28/24 15:21 Urine WBC 0-5 /hpf (0-5) 06/28/24 15:21 Ur Squamous Epith Cells 0-5 /hpf (0-5) 06/28/24 15:21 Amorphous Sediment Not Reportable 06/28/24 15:21 Urine Bacteria None seen /hpf (NONE) 06/28/24 15:21 Hyaline Casts 0.81 /lpf 06/28/24 15:21 Urine Mucus 1+ /hpf 06/28/24 15:21 All radiology interpretation(s) finalized by discharge Discharge Plan Discharge Patient Disposition: Home Clinical Impression: Subchorionic hemorrhage in first trimester Condition: Stable Prescriptions: No Action PNV #[id number] 30 mg iron-10 mg iron-1 mg capsule 1 cap PO DAILY vitamin B complex Capsule 1 cap PO DAILY omega-3 fatty acids 1,000 mg capsule 2,000 mg PO DAILY cholecalciferol (vitamin D3) 25 mcg (1,000 unit) capsule 25 mcg PO DAILY prasterone (dhea) [DHEA] 25 mg tablet 25 mg PO DAILY Jean-Claude Niagen 300 mg tablet 300 mg PO DAILY Co Q-10 300 mg capsule 600 mg PO DAILY methylfolate 2 mg 2 mg PO DAILY cetrorelix [Cetrotide] 0.25 mg kit 0.25 mg SUBCUT DAILY Qty: 1 5RF Rx Instructions: inject subcutaneously once daily as directed follitropin angie 900/1.5 unit/mL pen injector 300 unit SUBCUT DAILY Qty: 1.5 5RF Rx Instructions: inject 300 units subcutaneously once daily as directed Menopur 75 unit recon soln 75 unit SUBCUT DAILY Qty: 10 3RF Rx Instructions: inject 75 units subcutaneously once daily (for 8-13 days) as directed chorionic gonadotropin, human 10,000 unit recon soln 1,000 - 10,000 unit IM ONCE Qty: 1 1RF Rx Instructions: inject 1,000-10,000 units as directed by Dr. Mayes's office leuprolide 1 mg/0.2 mL kit 1 mg SUBCUT DAILY Qty: 1 1RF Rx Instructions: inject 0.8 mL under the skin one time when directed by Dr. Mayes Discharge Orders: Discharge ED (Routine); Ordered 06/28/24 Ordered By: Pool Null Referrals: Brando Thomason MD [Primary Care Provider] - Patient Instructions: Opioid Safety, Pain Management Activity Restrictions/Additional Instructions: Thank you for choosing [facility] for your healthcare needs today. It is very important that you follow up as instructed or that you return to the Emergency Department should you have concerns or if your condition changes or worsens in any way. You were seen in the emergency room with complaint of vaginal bleeding. An ultrasound was done today and compared to an ultrasound done on June 19 there was a small subchorionic hemorrhage at the time of the ultrasound in June to today's ultrasound also shows Subchorionic hemorrhage. activity and heart tones on today's ultrasound were normal. Follow-up with your [employer] doctor later that next week. Stand Alone Forms: Work/School Release Coding Level of Care Code ED Central Office Supervisor for Carlos Eduardo Bright
--- NOTE | 2024-06-28 15:05 | USR_ITS ---
PROCEDURE INFORMATION: Exam: US First Trimester, Transabdominal and US , Transvaginal Exam date and time: 06/28/2024 4:16 PM Age: 34 years old Clinical indication: Lmp or gestational age (in weeks): 8 w 5d; Antepartum complications; Bleeding; ; Additional info: 8 weeks gestation, of vaginal bleeding, ivf LABS AND CLINICAL REPORTS: Gestational age (Established): 8 w 3 d Estimated due date (Established): 02/04/2025 TECHNIQUE: Imaging protocol: Real-time transabdominal obstetrical ultrasound of the maternal pelvis and a first trimester , less than 14 weeks 0 days, with image documentation. Transvaginal imaging was used for better evaluation of the fetus, adnexa, and/or cervix. COMPARISON: US OB transvaginal [id number] 06/19/2024 1:57 PM FINDINGS: GESTATION: Gestation: Single intrauterine gestational sac with yolk sac and embryo. Yolk sac measures 3.6 mm. Embryo/ cardiac activity (BPM): heart rate measures 182 bpm. Extra-embryonic membranes/Placenta: Small volume of subchorionic hemorrhage. BIOMETRY: Gestational age (AUA): Estimated gestational age by ultrasound of 8 weeks and 5 days. [place] rump length (CRL): [place]-rump length measures 2.1 cm. MATERNAL: Uterus: Unremarkable. Cervix: Normal appearance of the cervix. Right ovary/adnexa: Normal-appearing right ovary. Left ovary/adnexa: Left ovary is not visualized. Intraperitoneal space: No intraperitoneal free fluid. US/US OB <=14 wk fetus w transvag IMPRESSION: Single living intrauterine measuring 8 weeks and 5 days, compatible with provided date by LMP. Small volume of subchorionic hemorrhage. Attention on follow-up imaging.
[2024-06-28 15:20] LABS: Basophils # 0.1 10^3/uL (0.0-0.1); Basophils % 0.7 %; Eosinophils # 0.1 10^3/uL (0.0-0.8); Eosinophils % 0.8 %; Hematocrit 39.7 % (36-47); Lymphocytes # 2.5 10^3/uL (0.8-4.8); Lymphocytes % 24.3 %; Mean Corpuscular HGB Conc 33.2 g/dL (30-55); Mean Corpuscular Hemoglobin 26.1 pg (27-33); Mean Corpuscular Volume 78.6 fl (85-98); Mean Platelet Volume 11.5 fL (7.4-10.4); Monocytes # 0.9 10^3/uL (0.2-0.9); Monocytes % 8.9 %; Neutrophils # 6.68 10^3/uL (1.8-7.7); Nucleated Red Blood Cells % 0 %; Platelet Count 267 10^3/cmm (157-399); Red Blood Count 5.05 10^6/uL (3.85-5.65); Red Cell Distribution Width 13.2 % (12.1-15.1); White Blood Count 10.26 10^3/uL (3.29-11.43)
[2024-06-28 15:24] VITALS: PULSE 80; O2SAT 100
[2024-06-28 15:48] LABS: Alanine Aminotransferase 12 U/L (0-33); Albumin Level 4.1 g/dL (3.5-5.2); Alkaline Phosphatase 83 U/L (35-105); Anion Gap 20.9 (5-19); Aspartate Amino Transferase 14 U/L (0-32); Blood Urea Nitrogen 7 mg/dL (6-20); Calcium 9.6 mg/dL (8.5-10.5); Carbon Dioxide 20 mmol/L (22-29); Chloride 98 mmol/L (98-107); Creatinine Clr Calc Pharmacy 138.9903; Globulin 3.2 g/dL (1.3-4.6); Glomerular Filtration Rate 115.9 mL/min (90-130); Glucose 95 mg/dL (65-115); Osmolality Calculated 278 mOsm/kg (285-295); Potassium 3.9 mmol/L (3.5-5.1); Sodium 135 mmol/L (136-145); Total Bilirubin 0.2 mg/dL (0.15-1.2); Total Protein 7.3 g/dL (6.6-8.7)
[2024-06-28 15:52] LABS: Bilirubin Urine Negative (Negative); Blood Urine Negative (Negative); Glucose Urine UA Negative (Normal); Ketones Urine 1+ (Negative); Leukocyte Esterase Urine Negative (Negative); Nitrate Urine Negative (Negative); Protein Urine Negative (Negative); Specific Gravity, Urine 1.021 (1.005-1.030); Urine Appearance Clear (CLEAR); Urine Color Yellow (Yellow); Urobilinogen Urine 0.2 mg/dL (Negative); pH Urine 5.5 (5-7)
[2024-06-28 15:57] LABS: Add Urine Microscopic? YES; Bacteria Urine None Seen /hpf; Hyaline Casts Urine 0.81 /lpf; RBC Urine 0-2 /hpf (0-2); Squamous Epithelial Cell Urine 0-5 /hpf (0-5); WBC Urine 0-5 /hpf (0-5)
[2024-06-28 16:06] LABS: UA Slide Review UA Slide Review Perf
[2024-06-28 16:07] LABS: Progesterone > 60 ng/mL
[2024-06-28 16:07] LABS: Mucus Urine 1+ /hpf
== END 2024-06-28 18:03 | disposition home or self-care (01) ==
PROVIDERS: Emergency Medicine; Emergency Provider Family Medicine; PCP Family Medicine
DX: O20.8 Other hemorrhage in early pregnancy (principal); Z3A.08 8 weeks gestation of pregnancy; F17.290 Nicotine dependence, other tobacco product, uncomplicated
CPT/HCPCS: 76801; 76817; 80053; 81001; 84144; 84702; 85025; 99284

== ENCOUNTER → 2024-08-16 14:32 | Outpatient (BNVA) | payer OTHER, SELFPAY | PROVIDERS: PCP Family Medicine; Visit Provider Registered Nurse Neonatal Intensive Care | DX: R50.9 Fever, unspecified (principal) | CPT/HCPCS: 87400 ==

== ENCOUNTER 2024-11-16 13:25 | Outpatient (CLI) | payer OTHER, SELFPAY ==
[2024-11-16] VITALS (21 sets, daily range): BP systolic 107–121; BP diastolic 57–75; PULSE 76–114; O2SAT 97–100
[2024-11-16 14:14] LABS: Bilirubin Urine Negative (Negative); Blood Urine Negative (Negative); Glucose Urine UA Negative (Normal); Ketones Urine 3+ (Negative); Leukocyte Esterase Urine Trace (Negative); Nitrate Urine Negative (Negative); Protein Urine 1+ (Negative); Specific Gravity, Urine 1.023 (1.005-1.030); Urine Appearance Clear (CLEAR); Urine Color Dark Yellow (Yellow); pH Urine 6.5 (5-7)
[2024-11-16 14:16] LABS: Bacteria Urine None Seen /hpf; Hyaline Casts Urine 4.11 /lpf; RBC Urine 0-2 /hpf (0-2); Squamous Epithelial Cell Urine 0-5 /hpf (0-5); WBC Urine 0-5 /hpf (0-5)
[2024-11-16] MEDS: betamethasone susp 6 mg/mL 5 mL 12 MG IM (14:59)
[2024-11-16] MEDS: lactated ringers 1,000 ML 999 ML IV (14:59)
[2024-11-16] MEDS: NIFEdipine 10 mg Capsule 20 MG PO (15:00)
[2024-11-16] MEDS: NIFEdipine 10 mg Capsule PO (16:19)
== END 2024-11-16 17:00 | disposition home or self-care (01) ==
LOC: OPOB 13:31 → OBGYN 13:32
PROVIDERS: PCP Family Medicine; Visit Provider Family Medicine
DX: O26.899 Other specified pregnancy related conditions, unspecified trimester (principal); Z3A.00 Weeks of gestation of pregnancy not specified; R10.9 Unspecified abdominal pain
CPT/HCPCS: 59025; 81001; 96372; 99211; J0702; J7120; J9999

== ENCOUNTER 2024-11-17 13:45 | Outpatient (CLI) | payer OTHER, SELFPAY ==
[2024-11-17 13:45] VITALS: BMI 29.9
[2024-11-17] MEDS: betamethasone susp 6 mg/mL 5 mL 12 MG IM (14:03)
[2024-11-17 14:09] VITALS: BP 124/78; PULSE 102
== END 2024-11-17 14:38 | disposition home or self-care (01) ==
LOC: OPOB 13:48 → OBGYN 13:52
PROVIDERS: PCP Family Medicine; Visit Provider Family Medicine
DX: O26.899 Other specified pregnancy related conditions, unspecified trimester (principal); Z3A.00 Weeks of gestation of pregnancy not specified
CPT/HCPCS: 59025; 96372; 99211; J0702

== ENCOUNTER 2024-12-26 20:20 | Outpatient (CLI) | payer OTHER, SELFPAY ==
[2024-12-26] VITALS (13 sets, daily range): BP systolic 114–134; BP diastolic 62–78; PULSE 100–153; RESP 16; TEMP 36.9; O2SAT 91–99; BMI 33.3
--- NOTE | 2024-12-26 21:03 | PC.NURSE ---
Pt refused PO propanolol. States she has her own prescription at home and will take it per instructions on the label, as she has not today.
== END 2024-12-26 21:16 | disposition home or self-care (01) ==
LOC: OPOB 20:21 → OBGYN 20:22
PROVIDERS: PCP Family Medicine; Visit Provider Family Medicine
DX: O13.9 Gestational [pregnancy-induced] hypertension without significant proteinuria, unspecified trimester (principal); Z3A.00 Weeks of gestation of pregnancy not specified
CPT/HCPCS: 59025; 99211

== ENCOUNTER 2024-12-27 13:30 | Outpatient (CLI) | payer OTHER, SELFPAY ==
[2024-12-27] VITALS (17 sets, daily range): BP systolic 106–123; BP diastolic 58–65; PULSE 65–89; O2SAT 97–99
== END 2024-12-27 15:00 | disposition home or self-care (01) ==
LOC: OPOB 13:30 → OBGYN 13:32
PROVIDERS: PCP Family Medicine; Visit Provider Family Medicine
DX: O13.9 Gestational [pregnancy-induced] hypertension without significant proteinuria, unspecified trimester (principal); Z3A.00 Weeks of gestation of pregnancy not specified
CPT/HCPCS: 59025; Q0162

== ENCOUNTER 2025-01-03 07:22 | Outpatient (CLI) | payer OTHER, SELFPAY ==
[2025-01-03 07:22] VITALS: BMI 30.2
[2025-01-03 07:37] VITALS: BP 119/74; PULSE 96
[2025-01-03 07:58] VITALS: BP 114/62; PULSE 80
== END 2025-01-03 08:16 | disposition home or self-care (01) ==
LOC: OPOB 07:26 → OBGYN 07:26
PROVIDERS: PCP Family Medicine; Visit Provider Family Medicine
DX: O24.419 Gestational diabetes mellitus in pregnancy, unspecified control (principal); Z3A.00 Weeks of gestation of pregnancy not specified
CPT/HCPCS: 59025; 99211

== ENCOUNTER 2025-01-10 10:15 | Outpatient (CLI) | payer OTHER, SELFPAY ==
[2025-01-10 10:42] VITALS: BP 110/67; PULSE 95
== END 2025-01-10 10:48 | disposition home or self-care (01) ==
LOC: OPOB 10:19 → OBGYN 10:20
PROVIDERS: PCP Family Medicine; Visit Provider Family Medicine
DX: O24.419 Gestational diabetes mellitus in pregnancy, unspecified control (principal); Z3A.00 Weeks of gestation of pregnancy not specified
CPT/HCPCS: 59025

== ENCOUNTER 2025-01-17 07:41 | Outpatient (CLI) | payer OTHER, SELFPAY ==
[2025-01-17 07:45] VITALS: BMI 29.6
[2025-01-17 07:49] VITALS: BP 117/66; PULSE 108
[2025-01-17 08:04] VITALS: BP 114/62; PULSE 101
[2025-01-17 08:19] VITALS: BP 115/65; PULSE 100
[2025-01-17 08:23] VITALS: RESP 16
[2025-01-17 08:25] VITALS: BP 115/65; PULSE 100; RESP 16
== END 2025-01-17 08:25 | disposition home or self-care (01) ==
LOC: OPOB 07:46 → OBGYN 07:47
PROVIDERS: PCP Family Medicine; Visit Provider Family Medicine
DX: O24.419 Gestational diabetes mellitus in pregnancy, unspecified control (principal); Z3A.00 Weeks of gestation of pregnancy not specified
CPT/HCPCS: 59025; 99211

== ENCOUNTER 2025-01-22 05:00 | Inpatient (IN) | payer OTHER, SELFPAY ==
--- NOTE | 2025-01-08 10:49 | ANES.PREANE2 ---
Pre-Anesthetic Assessment Height/Weight: Height 1.65 m Operation Date: 01/22/25 07:05 Proposed Procedures p Section Repeat 44716, IUP(Not Applicable) - Brando Thomason MD Familial anesthetic complications: None Was Beta Livia taken within 24 hours: N/A Was Clonidine taken within 24 hours: N/A Social No alcohol and No tobacco Exam alert, oriented x 3, clear to auscultation bilaterally and regular rate & rhythm Airway Mallampati: Class I Dentition: full Metabolic gestational dm Anesthetic Plan ASA status: 3 Anesthesia: Regional (specify below) Risk of > 500 ml blood loss (7ml/kg in children): Yes, adequate IV access and fluids planned Medications/Allergies Home Medications ?Medication ?Instructions ?Recorded ?Confirmed ?Last Taken ?Type Iron (ferrous sulfate) 1 tab PO DAILY 11/16/24 12/26/24 12/26/24 History nifedipine 60 mg tablet,extended 60 mg PO DAILY 11/16/24 12/26/24 12/26/24 History release 24 hr (Procardia XL) [id number] 1 mg 1 tab PO DAILY 11/16/24 12/26/24 12/26/24 History tablet propranolol 20 mg tablet 20 mg PO DAILY 12/26/24 12/26/24 12/25/24 History Allergies Allergy/AdvReac Type Severity Reaction Status Date / Time latex Allergy ALGY-Hives Verified 12/26/24 21:08 [facility] Anesthesia Medical History (Updated 06/28/24 @ 17:45 by Pool Null DO) Bleeding in early Family History Denies family history of Ovarian cancer Diabetes Heart disease Breast cancer Hypertension Uterine cancer Thyroid disease Stroke Social History Smoking and tobacco/nicotine status: former use of tobacco/nicotine (VAPE 06/2023 CIG 2013)
[2025-01-22] VITALS (103 sets, daily range): BP systolic 98–150; BP diastolic 59–95; PULSE 56–126; RESP 16–18; TEMP 35.2–36.6; O2SAT 89–100; BMI 30.1
[2025-01-22 05:53] LABS: Hematocrit 33.5 % (36-47); Hemoglobin 11.00 g/dL (11.27-16.99); Mean Corpuscular HGB Conc 32.8 g/dL (30-55); Mean Corpuscular Hemoglobin 25.2 pg (27-33); Mean Corpuscular Volume 76.8 fl (85-98); Nucleated Red Blood Cells % 0 %; Platelet Count 187 10^3/cmm (157-399); Red Blood Count 4.36 10^6/uL (3.85-5.65); White Blood Count 7.49 10^3/uL (3.29-11.43)
--- NOTE | 2025-01-22 06:44 | PM.OBGYHP ---
Providers/Chief Complaint Admitting Physician: Brando Thomason MD Primary Care Provider: Brando Thomason MD Chief Complaint: Schedule repeat HPI [employer] History of Present Illness Amanda Brock is a 34 year old 5 para 4-0-0-4 female at 38 weeks estimated gestational age with gestational diabetes presenting for a repeat section. The patient has had a that began with IVF and has been otherwise unremarkable with the exception of having gestational diabetes that has been well-controlled. Her diabetes numbers were controlled and her sugars have been monitored with a Dexcom. Otherwise there have been no concerns. She has had consistent care. Present Details : 5 Para: 4 Labs Rubella: Immune RPR: Negative GBS: Positive Review of Systems General: Reports: 10 or more systems reviewed and unremarkable except in HPI and below Const: Reports: fatigue; Denies: fever(s) Eyes: Denies: change in vision Card: Denies: chest pain Musc: Reports: back pain Aramis/Lymph: Denies: easy bruising Medications/Allergies Home Medications ?Medication ?Instructions ?Recorded ?Confirmed ?Last Taken ?Type Iron (ferrous sulfate) 1 tab PO DAILY 11/16/24 12/26/24 12/26/24 History nifedipine 60 mg tablet,extended 60 mg PO DAILY 11/16/24 12/26/24 12/26/24 History release 24 hr (Procardia XL) [id number] 1 mg 1 tab PO DAILY 11/16/24 12/26/24 12/26/24 History tablet propranolol 20 mg tablet 20 mg PO DAILY 12/26/24 12/26/24 12/25/24 History Allergies Allergy/AdvReac Type Severity Reaction Status Date / Time latex Allergy ALGY-Hives Verified 12/26/24 21:08 PFSH [employer] PFSH: Medical History Bleeding in early Family History Denies family history of Ovarian cancer Diabetes Heart disease Breast cancer Hypertension Uterine cancer Thyroid disease Stroke Social History Smoking and tobacco/nicotine status: former use of tobacco/nicotine (VAPE 06/2023 CIG 2013) History History History 5 Term 4 0 Miscarriages/Ectopic 0 Living Children 3 Vitals/I&O/Wt Last Vital Signs Pulse 84 01/22/25 06:40 Resp 16 01/22/25 05:03 BP 115/71 01/22/25 06:40 O2 Del Method Room Air 01/22/25 05:16 Weight last 48 hrs Weight 181 lb Physical Exam Const: COMMON NORMALS: patient oriented x3 and alert HENMT: COMMON NORMALS: moist oral mucous membranes HEAD & SCALP: normal to inspection Chest: COMMONS NORMALS: normal inspection of the chest Resp: COMMON NORMALS: clear to auscultation bilaterally AUSCULTATION: clear to auscultation bilaterally Cardio: COMMON NORMALS: regular rate and regular rhythm RATE: regular rate RHYTHM: regular rhythm GI: INSPECTION: Yes normal to inspection and Yes other (Gravid) Extremity: COMMON NORMALS: normal to inspection GENERAL: Yes edema (Trace) Neuro: COMMON NORMALS: patient oriented x3, moves all extremities and no sensory deficits noted SENSORIUM/ORIENTATION: Yes alert Psych: COMMON NORMALS: mental status grossly normal Skin: COMMON NORMALS: no rashes or lesions noted GENERAL SKIN EXAM: no rashes or lesions noted Data 01/22/25 05:15 Results Labs OB ([facility]): Obstetrics 10/16/24 Blood Type O Positive Today Antibody Screen Negative 06/01/24 Hct, (36-47) 33.5 % L Today Hgb, (11.27-16.99) 11.00 g/dL L Today Rho(D) Type Rh positive Today Plt Count, (157-399) 187 10^3/cmm Today Hep Bs Antibody, (11.5-1000) 5.8 L 12/17/23 Hepatitis C Antibody, (Nonreactive) Non-reactive 02/01/24 Rubella IgG Antibody, (0.0-10.0) > 500.0 IU/mL H 12/17/23 HIV 1&2 Ab & HIV 1 Ag, (Non-Reactiv) Non-reactive 02/01/24 C.trachomatis RNA (TMA), (NOT DETECTED) Not detected 02/01/24 N.gonorrhoeae RNA (TMA), (NOT DETECTED) Not detected 02/01/24 Chlamydia/GC Comment See note 02/01/24 VZV IgG Antibody 254.90 index 12/17/23 Progesterone > 60 ng/mL 06/28/24 Total Estradiol 486.8 pg/mL 03/21/24 Ser , Semi-Qnt 71295.00 mIU/mL 06/28/24 HCG, Qual, (Negative) Positive H 06/02/24 A&P Assessment and plan 1. 38 weeks gestation of : I anticipate a routine and post care. We discussed the risks of a low-transverse section multiple times during her . We also discussed the fact that her risks are higher due to the fact that she has had 2 previous sections. At one point she was considering having a tubal ligation but has decided not to proceed with that. 2. Gestational diabetes mellitus: 3. History of low transverse section: PDMP PDMP Reviewed: Not Reviewed Attestations Medical Necessity Statement*: I anticipate routine and post care. Coding Level of Care Code Acute Code for Chg Fwd Diagnoses 38 weeks gestation of Z3A.38 Gestational diabetes mellitus O24.419 History of low transverse section Z98.891
[2025-01-22] MEDS: metoclopramide 5 mg/mL SDV 2 mL 10 MG IVP (06:51)
[2025-01-22] MEDS: citric acid-sodium citrate 30 mL UDC PO (06:52)
[2025-01-22] MEDS: ondansetron 2 mg/ML SDV 2 mL 4 MG IVP ×3 (06:54→16:05)
--- NOTE | 2025-01-22 07:03 | P.ANESUD_ITS ---
Pre-Anesthetic Update Pre-Anesthetic Assessment: Date of Surgery/Procedure: 01/22/25 Preop Emma gnosis: Prior Proposed Procedure: Operation Date: 01/22/25 07:05 Proposed Procedures p Section Repeat 55770, IUP(Not Applicable) - Brando Thomason MD Any changes to Pre-Anesthetic Assessment?: No Last Intake: Intake Last Liquid Date 01/21/25 Last Liquid Time 22:30 Last Solid Date 01/21/25 Last Solid Time 22:30 Labs Last 48hrs: Short CBC 01/22/25 Range/Units 05:15 WBC 7.49 (3.29-11.43) 10^ 3/uL Hgb 11.00 L (11.27-16.99) g/ dL Hct 33.5 L (36-47) % MCV 76.8 L (85-98) fl Plt Count 187 (157-399) 10^3/c mm Neut % (Auto) 54.3 % Neut # (Auto) 4.07 (1.8-7.7) 10^3/u L Blood Bank 01/22/25 05:15 Blood Type O Positive Rho(D) Type Rh positive Antibody Screen Negative Vitals: Pulse Rate 67 01/22/25 06:55 Respiratory Rate 16 01/22/25 05:03 Respiratory Effort Spontaneous, Non- Labored 01/22/25 05:16 Respiratory Depth Normal 01/22/25 05:16 Respiratory Patter n Normal 01/22/25 05:16 Blood Pressure 115/73 01/22/25 06:55 Oxygen Delivery Me thod Room Air 01/22/25 05:16 Exam: Pre-Anes Outpt Exam: alert, oriented x 3, clear to auscultation bilaterally and regular rate & rhythm
[2025-01-22] MEDS: BUPivacaine 0.5% INJ 30 mL INJECTION (07:50)
--- NOTE | 2025-01-22 08:22 | PM.OP ---
Operative Report Date of procedure: January 22, 2025 Pre-op diagnosis: 1. 34-year-old 5 para 4-0-0-4 at 38 weeks estimated gestational age 2. History of section x 2 3. Well-controlled gestational diabetes Post-op diagnosis: Status post low-transverse section Procedure done: Lower transverse section Specimens removed/disposition: 1. Male with Apgars of 9 and 9 and a weight of 6 pounds 13 ounces 2. Placenta with a three-vessel cord delivered intact Surgeon: Brando Thomason MD Estimated blood loss (mL): 600 Complications: None Procedure: The patient was brought back to the operating room where she was prepped and draped in usual sterile fashion. Anesthesia was found to be adequate. A lower transverse skin incision was then made with a #10 blade. I then dissected down to the underlying subcutaneous tissue until arriving at the prerectal fascia. The fascia was then nicked with the scalpel bilaterally. The fascial incisions were then carried laterally with Garcia scissors. Attention was then turned to the superior aspect of the incision which was grasped with kochers and tented up away from the underlying rectus abdominis muscles. The muscles were then dissected away from the fascia manually, and later with Garcia scissors. Attention was then turned to the inferior aspect of the incision, and the fascia was dissected away from the underlying muscle in similar fashion. The rectus abdominis muscles were adhesed together. They were grasped with Allises and a scalpel was used to carefully make a midline incision. The muscles were then spread manually. The peritoneum was entered manually. Excellent visualization of the uterus was noted. A lower transverse uterine incision was then made with a #10 blade. Upon arriving at the intrauterine cavity, the uterine incision was then extended manually. The was noted to be in vertex position. The baby was delivered without difficulty. After delivery of the head, the mouth and nose were suctioned at the site of the incision. There was no meconium. There was no nuchal cord. The remainder of the body was then delivered and placed on the abdomen. The cord was cut and clamped. The baby was then handed to the waiting nurse. The placenta was removed intact. The uterus was externalized. The intrauterine cavity was cleansed of any remaining debris. The uterine incision was reapproximated in 2 layers. The first layer was performed with 0 Vicryl in a running locked stitch. The second layer was an imbricating stitch also using 0 Vicryl. The uterus was replaced into the abdomen. The peritoneum was then irrigated with warm saline. I reexamined the uterine incision and found it to be hemostatic. The rectus abdominis muscles were then reapproximated using 0 Vicryl in a running stitch. The subcutaneous tissue was then reapproximated using 0 Vicryl in a running stitch. The fascia was then reapproximated using 0 Vicryl in running stitch. The skin was reapproximated using ilir. A sterile dressing was placed. All counts were correct x2. Both the mother and baby were in stable condition.
[2025-01-22 08:41] LABS: PCP Screen Urine Negative (Negative)
--- NOTE | 2025-01-22 13:24 | PC.NURSE ---
Patient with episodes of vomiting, small amounts, x8. Dr. Thomason notified @ [id number]
[2025-01-22 16:46] LABS: Hematocrit 31.3 % (36-47); Hemoglobin 10.20 g/dL (11.27-16.99); Mean Corpuscular HGB Conc 32.6 g/dL (30-55); Mean Corpuscular Hemoglobin 25.8 pg (27-33); Mean Corpuscular Volume 79.0 fl (85-98); Platelet Count 167 10^3/cmm (157-399); Red Blood Count 3.96 10^6/uL (3.85-5.65); White Blood Count 14.67 10^3/uL (3.29-11.43)
--- NOTE | 2025-01-22 17:27 | PC.NURSE ---
Patient assisted to side of bed; perineum cleaned with warm wet washcloths. Peripad and underwear applied. Patient assisted to standing at bedside and to chair.
--- NOTE | 2025-01-22 18:22 | PC.NURSE ---
Patient ambulated in halls 2 laps around unit with nurse at side; tolerated well.
[2025-01-22] MEDS: alum-mag-hydroxide-sime 30 mL UDC PO (22:08)
[2025-01-23 04:10] VITALS: BP 113/74; PULSE 66
[2025-01-23 05:24] LABS: Hematocrit 26.8 % (36-47); Hemoglobin 8.80 g/dL (11.27-16.99); Mean Corpuscular HGB Conc 32.8 g/dL (30-55); Mean Corpuscular Hemoglobin 25.6 pg (27-33); Mean Corpuscular Volume 77.9 fl (85-98); Nucleated Red Blood Cells % 0 %; Platelet Count 150 10^3/cmm (157-399); Red Blood Count 3.44 10^6/uL (3.85-5.65); White Blood Count 9.59 10^3/uL (3.29-11.43)
[2025-01-23 07:11] VITALS: BP 115/63; PULSE 81
--- NOTE | 2025-01-23 07:18 | PM.OBGYDC ---
Discharge Providers [employer] Date of Admission: 01/22/25 05:00 Date of Discharge: 01/23/25 Attending Provider at Admission: Brando Thomason MD Attending Provider at Discharge: Brando Thomason MD Primary Care Provider: Brando Thomason MD Diagnoses at Discharge Discharge Diagnosis 1. 38 weeks gestation of : 2. Gestational diabetes mellitus: 3. History of low transverse section: Reason for Visit Reason for Visit: Schedule repeat Hospital Course Hospital Course The patient presented to the hospital for a repeat scheduled section at 38 weeks due to her gestational diabetes. The was unremarkable. Her post operative course was remarkable for having nausea post operation on the first day. By the evening of the first day her nausea had improved. Her pain was well-controlled. She refused any medication with narcotics. She also felt like the Toradol made her dizzy as well. Her bleeding has been within normal limits. Her vitals have been within normal limits. Her urine output was excellent. Her diet will be advanced today. If she tolerates it well, we anticipate she will be going home this afternoon. Information Peripartum Data: Delivery Method: Physical Exam Narrative: She is in no acute distress Lungs are clear auscultation bilaterally Her heart has a regular rate and rhythm Her fundus is below the umbilicus and firm Her dressing is clean, dry and intact Her extremities have trace edema Urinary Catheter Management: Hernandez Latex Free: Cath Placed During This Visit: yes, but has since been removed by the nurse Reason for Continuing Indwelling Catheter: Decision to DC Catheter Urinary Catheter Date of Insertion: 01/22/25 Urinary Catheter Time of Insertion: 07:15 Date Urinary Catheter Removed: 01/22/25 Time Urinary Catheter Discontinued: 22:08 History History History 5 Term 4 0 Miscarriages/Ectopic 0 Living Children 4 Discharge Data Studies Completed and Pending Laboratory Results WBC 9.59 10^3/uL (3.29-11.43) 01/23/25 05:20 RBC 3.44 10^6/uL (3.85-5.65) L 01/23/25 05:20 Hgb 8.80 g/dL (11.27-16.99) L 01/23/25 05:20 Hct 26.8 % (36-47) L 01/23/25 05:20 MCV 77.9 fl (85-98) L 01/23/25 05:20 MCH 25.6 pg (27-33) L 01/23/25 05:20 MCHC 32.8 g/dL (30-55) 01/23/25 05:20 RDW 13.0 % (12.1-15.1) 01/23/25 05:20 Plt Count 150 10^3/cmm (157-399) L 01/23/25 05:20 MPV 12.0 fL (7.4-10.4) H 01/23/25 05:20 Neut % (Auto) 70.6 % 01/23/25 05:20 Lymph % (Auto) 17.3 % 01/23/25 05:20 Heard % (Auto) 9.5 % 01/23/25 05:20 Eos % (Auto) 2.0 % 01/23/25 05:20 Baso % (Auto) 0.3 % 01/23/25 05:20 Neut # (Auto) 6.77 10^3/uL (1.8-7.7) 01/23/25 05:20 Lymph # (Auto) 1.7 10^3/uL (0.8-4.8) 01/23/25 05:20 Heard # (Auto) 0.9 10^3/uL (0.2-0.9) 01/23/25 05:20 Eos # (Auto) 0.2 10^3/uL (0.0-0.8) 01/23/25 05:20 Baso # (Auto) 0.0 10^3/uL (0.0-0.1) 01/23/25 05:20 Nucleated RBC % (auto) 0 % 01/23/25 05:20 Nucleated RBCs # 0.0 /100WBC 01/23/25 05:20 Urine Opiates Screen Negative ng/mL (Negative) 01/22/25 08:00 Ur Barbiturates Screen Negative ng/mL (Negative) 01/22/25 08:00 Ur Phencyclidine Scrn Negative ng/mL (Negative) 01/22/25 08:00 Ur Amphetamines Screen Negative ng/mL (Negative) 01/22/25 08:00 U Benzodiazepines Scrn Negative ng/mL (Negative) 01/22/25 08:00 Urine Cocaine Screen Negative ng/mL (Negative) 01/22/25 08:00 U Marijuana (THC) Screen Negative ng/mL (Negative) 01/22/25 08:00 Blood Type O Positive 01/22/25 05:15 Rho(D) Type Rh positive 01/22/25 05:15 Antibody Screen Negative 01/22/25 05:15 Vitals Last Vital Signs Temp 95.4 F L 01/22/25 16:12 Pulse 81 01/23/25 07:11 Resp 16 01/22/25 18:10 BP 115/63 01/23/25 07:11 Pulse Ox 99 01/22/25 14:16 O2 Del Method Room Air 01/22/25 18:10 Results Labs OB ([facility]): Obstetrics US 10/16/24 Blood Type O Positive 01/22/25 Antibody Screen Negative 01/22/25 Hct, (36-47) 26.8 % L Today Hgb, (11.27-16.99) 8.80 g/dL L Today Rho(D) Type Rh positive 01/22/25 Plt Count, (157-399) 150 10^3/cmm L Today Hep Bs Antibody, (11.5-1000) 5.8 L 12/17/23 Hepatitis C Antibody, (Nonreactive) Non-reactive 02/01/24 Rubella IgG Antibody, (0.0-10.0) > 500.0 IU/mL H 12/17/23 HIV 1&2 Ab & HIV 1 Ag, (Non-Reactiv) Non-reactive 02/01/24 C.trachomatis RNA (TMA), (NOT DETECTED) Not detected 02/01/24 N.gonorrhoeae RNA (TMA), (NOT DETECTED) Not detected 02/01/24 Chlamydia/GC Comment See note 02/01/24 VZV IgG Antibody 254.90 index 12/17/23 Progesterone > 60 ng/mL 06/28/24 Total Estradiol 486.8 pg/mL 03/21/24 Ser , Semi-Qnt 21471.00 mIU/mL 06/28/24 HCG, Qual, (Negative) Positive H 06/02/24 Urine Opiates Screen, (Negative) Negative ng/mL 01/22/25 Ur Barbiturates Screen, (Negative) Negative ng/mL 01/22/25 Ur Phencyclidine Scrn, (Negative) Negative ng/mL 01/22/25 Ur Amphetamines Screen, (Negative) Negative ng/mL 01/22/25 U Benzodiazepines Scrn, (Negative) Negative ng/mL 01/22/25 Urine Cocaine Screen, (Negative) Negative ng/mL 01/22/25 U Marijuana (THC) Screen, (Negative) Negative ng/mL 01/22/25 Discharge Plan Discharge Patient Disposition: Home Condition: Stable Prescriptions: New ibuprofen 800 mg Tablet 800 mg PO TID Qty: 45 0RF Continued Iron (ferrous sulfate) 1 tab PO DAILY [id number] 1 mg Tablet 1 tab PO DAILY Discontinued nifedipine [Procardia XL] 60 mg Tablet Extended Release 24hr 60 mg PO DAILY propranolol 20 mg Tablet 20 mg PO DAILY Referrals: Brando Thomason MD [Primary Care Provider, [facility]] - 4-7 days Discharge Diet: Usual diet Discharge Activity: Limit activity as instructed Patient Instructions: Depression (DC), Bleeding (DC), Preeclampsia and Eclampsia After Delivery (GEN), Hemorrhage (DC), OB - Paddy/Gillian, OB Discharge Report, OB Food/Drug Interaction Guide, Opioid Safety, OB Home Care, OB Proud Parent Packet, Patient Portal & Julianne Instructions Discharge Attestations [employer] Time Spent in Discharge Care*: less than 30 min Coding Level of Care Code Acute Code for Chg Fwd Diagnoses 38 weeks gestation of Z3A.38 Gestational diabetes mellitus O24.419 History of low transverse section Z98.891
[2025-01-23] MEDS: PRENATAL VIT NO.130/IRON/FOLIC 1 EACH TABLET PO (08:11)
[2025-01-23] MEDS: ferrous sulfate EC 325 mg Tablet PO (08:11)
[2025-01-23 13:00] VITALS: RESP 16; TEMP 36.9
[2025-01-23 13:20] VITALS: BP 118/74; PULSE 83
== END 2025-01-23 13:45 | disposition home or self-care (01) | DRG 788 ==
PROVIDERS: Admitting Provider Family Medicine; PCP Family Medicine; Visit Provider Family Medicine
PROC: 10D00Z1 Extraction of Products of Conception, Low, Open Approach (ICD-10-PCS; CPT 59514; principal; 2025-01-22 06:45)
DX: O34.211 Maternal care for low transverse scar from previous cesarean delivery (principal); N85.8 Other specified noninflammatory disorders of uterus; O24.429 Gestational diabetes mellitus in childbirth, unspecified control; Z3A.38 38 weeks gestation of pregnancy; Z37.0 Single live birth; O90.89 Other complications of the puerperium, not elsewhere classified; R11.0 Nausea
CPT/HCPCS: 36415; 51702; 59025; 59409; 80306; 85025; 85027; 86850; 86900; J0131; J0780; J1885; J2274; J2405; J2765; J3010; J3490; J7030; J7120; J9999

== ENCOUNTER 2025-05-16 09:14 | Emergency (ER) | payer OTHER, SELFPAY ==
--- OUTSIDE RECORDS SUMMARY | 2025-05-16 09:18 | XMS_ITS | Data Portability ---
Author Organization [facility], [place], [facility] Address [address] [facility] [address] [place] [address] Assessment Encounter Date Assessment Date Assessment LastModified by Organization Details LastModified Time 01/09/2025 01/09/2025 The patient is doing well. Her blood sugars are in range. Not available 01/09/2025 10:35:29 01/15/2025 01/15/2025 Blood sugars are well controlled. Not available 01/15/2025 10:32:08 Plan of Treatment Reminders Order Date Submit Date Provider Last Modified By Organization Details Last Modified Time Details Appointments None record ed. Lab None record ed. Referral None record ed. Procedures staple remova l (PROC) [email or web address] [place] [address], [address] [facility], [facility] [address], [place], [address], 5 15:58:31 Surgeries None record ed. Imaging US, obstet petty, biophy sical profil e - [id number] 2024 025 [email or web address] [facility], [address] [place], [address], 5 13:19:21 Medication Orders None record ed. Patient TargetsNo targets recorded. Patient InstructionsNo instructions recorded. Reason for Referral None Reported. Results Created Date Observation Date Name Description Value Unit Range Abnormal Flag Note LastModifiedBy Organization Detail LastModifiedTime 12/16/1912/09/2024 US, obste tric, 3rd trime ster No observ ation record ed. Not Available 12/16 09:43:37 01/06/20 25 12/24/2024 US, obste tric, follo w-up No observ ation record ed. [email or web address] Not Available 01/06 10:12:23 01/06/20 25 12/31/2024 US, obste tric, follo w-up No observ ation record ed. [email or web address] [facility] [address] [place], [address], 01/06/2025 10:13:28 01/16/20 25 01/07/2025 imagi ng/di agnos tic resul t No observ ation record ed. Not Available 01/15 15:43:55 01/31/20 25 01/14/2025 US, obste tric, bioph ysica l profi le No observ ation record ed. [email or web address] [facility] [address] [place], [address], 01/30/2025 14:49:56 Result Notes None recorded. Problems Name Problem SNOMED Code Status Onset Date Resolution Date Notes Provider Name and Address Organization Details Recorded Time Normal in [facility] 956870598813 106 Completed 2023 LG milan [facility], [place] 17:41:27 Normal in [facility] 686445405688 106 Active 2023 LG milan [facility], [place] 17:41:27 Subchorio david hematoma 525402261 Completed 2024 LG milan [facility], [place]til[place] 17:43:10 Subchorio david hematoma 912570849 Active 2024 LG milan [facility], [place] 17:43:10 Gestation al diabetes mellitus 31728641 Active 2024 Brando Thomason MD [address] [place] [address], [address], [facility], [place] 15:19:17 Anxiety 61911541 [facility] 2024 [facility] [place] 09:40:28 Deliverie s by 502327531 Active 2024 LGSANJUANITA BANUELOS [facility], [place] 13:53:15 Surgical follow-up 604290455 Active 2024 LGSANJUANITA BANUELOS [facility], [place] 13:53:17 care status 102325182 Active 2024 [facility] [place] 12:28:31 Problem Notes None recorded. Procedures Surgical History Date Name Laterality Status Provider Name and Address Organization Details Recorded Time 025 section [facility] [place] [facility]/28/[facility]25 13:48:03 025 Date of Last Pap Smear completed [facility] [place] [facility] 10:23:52 025 sampling of cervix for Papanicolaou smear [facility] [place] 09/18/[facility]24 10:24:43 021 ligation of bilateral fallopian tubes completed [facility], [place] 06/16/2024 13:13:08 021 delivery completed [facility], [place] 06/16/2024 13:14:19 015 delivery completed [facility], [place] 06/16/2024 13:14:09 laparoscopic sleeve gastrectomy completed [facility], [place] 06/16/2024 13:12:33 tuboplasty for sterilization reversal completed [facility], [place] 06/16/2024 13:13:37 tonsillectomy [facility] 14:40:37 Imaging Results None recorded. Procedure Notes None recorded. Medical Equipment None Reported. Allergies Allergen ID Allergen Name Allergen Category Reaction Reaction Severity Criticality Documentation Date Start Date Code Code System Note Provider Name and Address Organization Details Recorded Time 37939 Latex Exam Gloves medicatio n rash Not available Not available 01/13/2023 React ion: Rash; Comme nt: Recor ded 01/05 9:41A M by Luis Prather Offic e Visit ; Promo yoselin; Torito shen ce: *; Reaso n: Drug aller gy; ; [facility] Available [facility] 02:23:49 Medications Name Sig Start Date Stop Date Status Note LastModified by Organization Details LastModified Time Colace 100 mg capsule Take 1 capsule every day by oral route as needed. active Not Available Not Available No t Available Vitamin C 500 mg tablet TAKE 1 TABLET BY MOUTH EVERY DAY 08/21 completed Not Available Not Available Not Available Iron (ferrous sulfate) 325 mg (65 mg iron) tablet Take 1 tablet every day by oral route. active Not Available Not Available No t Available azithromy farhat 250 mg tablet TAKE 2 TABLETS BY MOUTH TODAY, THEN TAKE 1 TABLET DAILY ON DAYS 2-5 06/16 completed Not Available Not Available Not Available ibuprofen 800 mg tablet TAKE 1 TABLET BY MOUTH THREE TIMES DAILY 02/23 completed Not Available Not Available Not Available glyburide 2.5 mg tablet TAKE ONE-HALF TABLET BY MOUTH EVERY DAY 12/31 completed Not Available Not Available Not Available ondansetr on HCl 4 mg tablet TAKE 1 TABLET BY MOUTH EVERY 6 HOURS NEEDED FOR NAUSEA AND VOMITING 01/28 completed Not Available Not Available Not Available estradiol 0.1 mg/24 hr semiweekl y transderm al patch apply ONE PATCH TO THE lower abdomen AND CHANGE EVERY 3rd DAYS 06/16 completed Not Available Not Available Not Available progester one 50 mg/mL intramusc ular oil INJECT 100mg (ONE ML) INTRAMUS CULARLY ONCE DAILY DIRECTED . USE sesame oil 07/21 completed Not Available Not Available Not Available nifedipin e ER 60 mg tablet,ex tended release 24 hr TAKE 1 TABLET BY MOUTH EVERY DAY prn 01/28 completed Not Available Not Available Not Available chorionic gonadotro pin, human 10,000 unit IM powder for solution INJECT 1,000-10 ,000 units (based ON response ) UNDER THE SKIN ONCE as directed by md office. Timing AND DOSE of injectio n will be instruct ed by md office. 06/16 completed Not Available Not Available Not Available cetroreli x 0.25 mg subcutane ous kit Mix with liquid provided in prefille d syringe as directed by md. THEN INJECT contents of ONE (mixed) vial (0.25mg) UNDER SKIN ONCE daily as directed FOR 8-13 DAYS. 06/16 completed Not Available Not Available Not Available gabapenti n 300 mg capsule TAKE 2 CAPSULES BY MOUTH before procedur e DIRECTED 06/16 completed Not Available Not Available Not Available estradiol 2 mg tablet take 2 tablets BY MOUTH EVERY DAY DIRECTED 07/21 completed Not Available Not Available Not Available letrozole 2.5 mg tablet TAKE 1 TABLET BY MOUTH EVERY DAY DIRECTED 06/16 completed Not Available Not Available Not Available propranol ol 20 mg tablet TAKE 1 TABLET BY MOUTH TWICE DAILY NEEDED 01/28 completed Not Available Not Available Not Available glyburide 1.25 mg tablet Take 1 tablet every day by oral route. 12/31 completed Not Available Not Available Not Available metformin ER 500 mg tablet,ex tended release 24 hr take 2 tablets BY MOUTH TWICE DAILY 01/28 completed Not Available Not Available Not Available sertralin e 50 mg tablet TAKE 1 TABLET BY MOUTH ONCE DAILY 12/31 completed Not Available Not Available Not Available leuprolid e 1 mg/0.2 mL subcutane ous kit INJECT 0.8ml UNDER THE SKIN one time as a trigger when directed by Dr. Lester lugo's office 06/16 completed Not Available Not Available Not Available Vitamin 27 mg iron-0.8 mg tablet Take 1 tablet every day by oral route. active Not Available Not Available No t Available escitalop shannan 10 mg tablet TAKE 1 TABLET BY MOUTH DAILY 12/31 completed Not Available Not Available Not Available Sprintec (28) 0.25 mg-0.035 mg tablet TAKE 1 TABLET BY MOUTH ONCE DAILY 06/16 completed Not Available Not Available Not Available metformin ER 1,000 mg tablet,ex tended release 24hr (osmotic) Take 1 tablet twice a day by oral route. 12/31 completed vo JR/bh Not Available Not Available Not Available Menopur 75 unit subcutane ous solution Reconsti tute (mix) powder with supplied diluent as directed by md. ONCE mixed, THEN INJECT 75 units (one vial) UNDER THE SKIN ONCE daily FOR 8-13 DAYS as directed 06/16 completed Not Available Not Available Not Available Follistim AQ 900 unit/1.08 mL subcutane ous cartridge INJECT 300 units subcutan eously ONCE daily FOR EIGHT TO 13 DAYS as directed 06/16 completed Not Available Not Available Not Available famotidin e 01/28 completed Not Available Not Available Not Available Prilosec daily 06/16 completed 0; Recorded 01/06/20 22 9:41AM by Yosi Prather, Office Visit; Not Available Not Available Not Available Endometri n 100 mg vaginal insert insert ONE TABLET VAGINALL Y TWICE DAILY DIRECTED . needs by 05/10 completed Not Available Not Available Not Available tranexami c acid 650 mg tablet TAKE 2 TABLETS BY MOUTH prior TO retrieva l DIRECTED 06/16 completed Not Available Not Available Not Available Vitals Date Recorded Body height Body mass index (BMI) Body weight Oxygen saturation Heart rate Respiratory rate Body temperature Systolic And Diastolic Provider Name and Address Organization Details Last Updated DateTime 165.1 cm 30 kg/m2 33009.0 3 g 99 % 84 /min 18 /min 97.8 [degF] 110/70 mm[Hg] TREBA NEUSCHWAN [facility] 5 09:54:21 Date Recorded Body height Body mass index (BMI) Body weight Respiratory rate Oxygen saturation Heart rate Body temperature Systolic And Diastolic Provider Name and Address Organization Details Last Updated DateTime 5 165.1 cm 29.8 kg/m2 56421.1 3 g 18 /min 98 % 104 /min 97.7 [degF] 122/70 mm[Hg] LGSANJUANITA HANY [facility] 5 09:57:11 Date Recorded Body height Body mass index (BMI) Body weight Respiratory rate Oxygen saturation Heart rate Body temperature Systolic And Diastolic Provider Name and Address Organization Details Last Updated DateTime 5 165.1 cm 28.5 kg/m2 85944.3 g 20 /min 98 % 68 /min 98.7 [degF] 122/78 mm[Hg] LGSANJUANITA HANY [facility] 5 13:52:38 Date Recorded Body height Body mass index (BMI) Body weight Respiratory rate Body temperature Heart rate Oxygen saturation Systolic And Diastolic Provider Name and Address Organization Details Last Updated DateTime 5 165.1 cm 27.5 kg/m2 05876.7 4 g 18 /min 97.9 [degF] 76 /min 98 % 126/76 mm[Hg] LGSANJUANITA HANY [facility] 5 12:19:53 Social History Question Answer Notes LastModified by Organizat ion Details LastModified Time Tobacco Smoking Status Never Smoker LGSANJUANITA HANY [facility] 06/16/2024 13:14:44 Are You Blind Or Do You Have Difficulty Seeing? No Information not available 08/21/2024 Are You Deaf Or Do You Have Serious Difficulty Hearing? 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 11/13/2024 Information not available 11/13/2024 What Is Your Relationship Status? Information not available 06/16/2024 Are You Sexually Active? Yes Information not available 08/21/2024 Have You Recently Traveled Abroad? No Information not available 08/21/2024 Do You Have Difficulty Walking Or Climbing Stairs? No Information not available 08/21/2024 Sex: Unknown Functional Status Question Answer Note LastModified by Organizat ion Details LastModified Time Do you use any illicit or recreational drugs? No Information not available 06/16/2024 Do you or have you ever used any other forms of tobacco or nicotine? No Information not available 06/16/2024 What is your level of alcohol consumption? None Information not available 06/16/2024 Are you currently employed? Yes Information not available 06/16/2024 Do you have transportation difficulties? No Information not available 08/21/2024 Are you able to walk independently without assistance or assistive devices? YESWOREST Information not available 08/21/2024 Do you have difficulty doing errands alone? No Information not available 08/21/2024 Are you able to care for yourself independently? 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 No Information not available 08/21/2024 Mental Status Question Answer Note LastModified by Organization D etails LastModified Time Do you have difficulty concentrating, remembering or making decisions? No Information no t available 08/21/2024 Family History Relationship Description Onset Age of this Age Resolved Age Notes LastModified by Organization Details LastModified Time Mother Diabetes mellitus Not available 2023 13:22:35 Maternal Grandfather Diabetes mellitus Not available 2023 13:22:41 Medical History No medical history recorded. Gynecological History Statement/Question Response Abnormal Pap N Date of Last Pap Smear 07/21/2024 Obstetrics History GPAL:G 5 P 5 0 0 5 Type Value Full Term 5 Living 5 Total 5 Immunizations Vaccine Type Date Status Note Provider Nam e and Address Organization Details Recorded Time IPV 3 completed LGSANJUANITA HANY null, [facility] 06/16/2024 13:32:12 IPV 9 completed LGSANJUANITA HANY null, [facility] 06/16/2024 13:32:13 IPV 4 completed LG VIN null, [facility] 06/16/2024 13:32:13 IPV 2 completed LGSANJUANITA HANY null, [facility] 06/16/2024 13:32:13 MMR 8 completed LGSANJUANITA HANY null, [facility] 06/16/2024 13:32:13 MMR 3 completed LGSANJUANITA HANY null, [facility] 06/16/2024 13:32:13 COVID-19 vaccine, vector-nr, rS-Ad26, PF, 0.5 mL 1 completed LG HANY null, [facility] 06/16/2024 13:32:13 Tdap 8 completed LG BANUELOS null, [facility] 06/16/2024 13:32:13 Tdap 3 completed LGSANJUANITA HANY null, [facility] 06/16/2024 13:32:13 Hep B, adolescent or pediatric 3 completed LGSANJUANITA HANY null, [facility] 06/16/2024 13:32:13 Hep B, adolescent or pediatric 3 completed LG HANY null, [facility] 06/16/2024 13:32:13 Hep B, adolescent or pediatric 2 completed LG VIN null, [facility] 06/16/2024 13:32:13 Hib (PRP-T) 3 completed LG VIN null, [facility] 06/16/2024 13:32:13 Hib (PRP-T) 5 completed LG VIN null, [facility] 06/16/2024 13:32:13 Hib (PRP-T) 2 completed LG VIN null, [facility] 06/16/2024 13:32:13 Hib (PRP-T) 3 completed LG VIN null, [facility] 06/16/2024 13:32:13 meningococcal MCV4P 8 completed LG VIN null, [facility] 06/16/2024 13:32:13 DTaP 3 completed LG VIN null, [facility] 06/16/2024 13:32:13 DTaP 8 completed LG VIN null, [facility] 06/16/2024 13:32:13 DTaP 3 completed LG VIN null, [facility] 06/16/2024 13:32:13 DTaP 4 completed LG VIN null, [facility] 06/16/2024 13:32:13 DTaP 2 completed LG VIN null, [facility] 06/16/2024 13:32:13 Influenza, MDCK, trivalent, PF 0 completed LG VIN [facility] 06/16/2024 13:32:13 Influenza, split virus, trivalent, preservative 8 completed Not Available [facility] 01/13/2023 02:32:46 Past Encounters Encounter ID Performer Location Encounter Start Date Encounter Closed Date Diagnosis/Indication Diagnosis SNOMED-CT Code Diagnosis ICD10 Code Diagnosis IMO Codes Diagnosis Note [id number] Brando Thomason MD [facility] ([facility]) [address] [place] [address]68-840 5 06/16/2024 12:53:09 06/16/2024 17:03:09 Normal in multigravida 4306617007 59398 Z34.81 IVF - in-v itro fertilization 1972193645 2102 O09.819 Gestation period, 6 weeks 91274824 Z3A.01 Subchorionic hematoma 60 9930174 O41.8X99 [id number] Brando Thomason MD [facility] ([facility]) [address] [place] [address] [id number] 5 07/03/2024 10:14:53 07/04/2024 12:30:51 Normal in multigravida 3038516450 11284 Z34.81 [id number] Brando Thomason MD [facility] ([facility]) [address] [place] [address] [id number] 5 07/10/2024 08:53:00 07/10/2024 13:13:16 Vaginal bleeding complicating early 792298555 O20.9 [id number] Brando Thomason MD [facility] ([facility]) [address] [place] [address] 25327-931 5 07/21/2024 09:43:27 07/21/2024 11:05:53 Normal in multigravida 4404122402 14658 Z34.81 Gestation period, 11 weeks 34158424 Z3A.11 Subchorionic hematoma 60 2059623 O41.8X99 [id number] Brando Thomason MD [facility] ([facility]) [address] [place] [address] [id number] 5 07/21/2024 16:52:10 07/22/2024 09:54:19 Vaginal bleeding complicating early 023701735 O20.9 [id number] Brando Thomason MD [facility] ([facility]) [address] [place] [address] 74659-173 5 07/31/2024 14:26:48 07/31/2024 16:00:45 Normal in multigravida 6478405743 54968 Z34.81 Vaginal bl eeding complicating early 312841238 O20.9 Gestation period, 13 weeks 33301707 Z3A.13 [id number] Brando Thomason MD [facility] ([facility]) [address] [place] [address] 55074-248 5 08/07/2024 15:22:38 08/08/2024 09:34:51 [id number] Brando Thomason MD [facility] ([facility]) [address] [place] [address] [id number] 5 08/20/2024 08:41:59 08/21/2024 14:38:05 Normal in multigravida 7450143006 03714 Z34.81 [id number] Brando Thomason MD [facility] ([facility]) [address] [place] [address] [id number] 5 08/21/2024 09:48:15 08/21/2024 10:37:45 Normal in multigravida 4470548990 90434 Z34.81 Subchorionic hematoma 60 5036669 O41.8X99 Gestation period, 16 weeks 54925168 Z3A.16 [id number] Brando Thomason MD [facility] ([facility]) [address] [place] [address] [id number] 5 09/18/2024 09:31:34 09/18/2024 13:04:05 Normal in multigravida 0013599361 94706 Z34.81 Gestation period, 20 weeks 39024490 Z3A.20 [id number] Brando Thomason MD [facility] ([facility]) [address] [place] [address] 80996-354 5 09/18/2024 08:46:34 09/19/2024 10:43:13 [id number] Brando Thomason MD [facility] ([facility]) [address] [place] [address] [id number] 5 09/18/2024 08:46:22 09/18/2024 15:44:16 Normal in multigravida 7333839019 84135 Z34.81 [id number] Brando Thomason MD [facility] ([facility]) [address] [place] [address] 04784-901 5 10/16/2024 10:24:18 10/16/2024 11:46:22 Normal in multigravida 4105943124 72417 Z34.81 Gestation period, 24 weeks 795763593 Z3A.24 1855972 [id number] Brando Thomason MD [facility] ([facility]) [address] [place] [address] [id number] 5 10/16/2024 08:59:19 10/17/2024 12:31:55 [id number] Brando Thomason MD [facility] ([facility]) [address] [place] [address] [id number] 5 11/13/2024 09:27:20 11/14/2024 11:01:42 Normal in multigravida 4956562794 29483 Z34.81 Gestation period, 28 weeks 14369315 Z3A.28 4324047 Gestationa l diabetes mellitus 51238214 O24.415 68407676 [id number] Brando Thomason MD [facility] ([facility]) [address] [place] [address] 42362-674 5 11/19/2024 09:22:31 11/19/2024 10:40:15 Normal in multigravida 4945600411 21720 Z34.81 Gestation period, 29 weeks 39625449 Z3A.29 4023040 Premature uterine contraction 877416610 O47.00 0588140 [id number] Brando Thomason MD [facility] ([facility]) [address] [place] [address] [id number] 5 11/25/2024 11:37:37 11/25/2024 12:48:52 Normal in multigravida 5935343576 62175 Z34.81 Gestationa l diabetes mellitus 88047182 O24.415 12369950 Gestation period, 29 weeks 96953271 Z3A.29 [id number] Brando Thomason MD [facility]) [address] [place] [address] 94974-540 5 12/09/2024 08:58:50 12/10/2024 10:05:33 [id number] Brando Thomason MD [facility] ([facility]) [address] [place] [address] [id number] 5 12/12/2024 14:12:10 12/12/2024 15:25:27 Gestation period, 32 weeks 3484038 Z3A.32 5877728 Normal 2917867 2 Z34.83 72431389 Gestationa l diabetes mellitus 97637879 O24.419 48489397 [id number] Brando Thomason MD [facility]) [address] [place] [address] 77670-836 5 12/18/2024 16:15:30 12/18/2024 17:21:10 Normal in multigravida 9499333885 89113 Z34.81 Gestationa l diabetes mellitus 46092288 O24.415 O24.419 09560810 [id number] Gestation period, 33 weeks 13152818 Z3A.33 [id number] [facility] 38451722 F41.9 64731 [id number] Brando Thomason MD [facility] ([facility]) [address] [place] [address] [id number] 5 12/24/2024 13:13:34 12/25/2024 14:42:03 [id number] Brando Thomason MD [facility] ([facility]) [address] [place] [address] [id number] 5 12/31/2024 09:46:12 02/03/2025 04:02:18 Gestational diabetes mellitus 59117524 O24.415 O24.419 74158132 [id number] Normal pre gnancy in multigravida 2635012984 63912 Z34.81 Gestation period, 35 weeks 67095815 Z3A.35 7650843 [id number] Brando Thomason MD [facility] ([facility]) [address] [place] [address] 72683-688 5 12/31/2024 13:30:06 01/01/2025 13:57:53 [id number] Brando Thomason MD [facility] ([facility]) [address] [place] [address] [id number] 5 01/07/2025 14:42:57 01/08/2025 12:33:08 Gestational diabetes mellitus 59049879 O24.415 84672194 [id number] Brando Thomason MD [facility] ([facility]) [address] [place] [address] 47958-978 5 01/09/2025 09:31:38 01/09/2025 10:46:11 Gestational diabetes mellitus 02628743 O24.415 O24.419 82227428 34827466 Normal pre gnancy in multigravida 2558090301 92734 Z34.81 Gestation period, 36 weeks 89941739 Z3A.36 9821483 [id number] Brando Thomason MD [facility] ([facility]) [address] [place] [address] 45542-970 5 01/14/2025 12:01:18 01/16/2025 13:51:01 Gestational diabetes mellitus 69206778 O24.415 93316813 [id number] Brando Thomason MD [facility] ([facility]) [address] [place] [address] 01225-634 5 01/15/2025 09:24:53 01/15/2025 10:32:40 Normal in multigravida 7302759551 51138 Z34.81 Gestationa l diabetes mellitus 77145076 O24.419 O24.415 51622353 35016808 Gestation period, 37 weeks 55995638 Z3A.37 [id number] Brando Thomason MD [facility] ([facility]) [address] [place] [address] 38805-796 5 01/28/2025 13:29:00 01/28/2025 14:08:05 Deliveries by [id number] O82 439348 Surgical follow-up 24364 4000 Z48.02 112801 [id number] Brando Thomason MD [facility] ([facility]) [address] [place] [address] 02/23/2025 11:39:21 02/23/2025 15:34:39 care status 679360521 Z39.2 [id number] Health Concerns Section Related Observation LastModified by Organization Detai ls LastModified Time None Recorded Concern Status LastModified by Organization Details LastModified Time None Recorded Advance Directives Directive None Recorded Payers Insurance Date Sequence Insurance Name Policy Number Policy Brandon Covered Member ID Brandon Member ID Guarantor Name 01/28/2025 1 [employer] (O) Amanda Spangler Delmy [id number] Amanda E Delmy 06/16/2024 1 *SELF PAY* Au thaddeus Spangler Delmy 02/20/2025 1 [place] [id number] 1 Amanda Spangler Delmy [id number] Amanda Brock Notes Date Note Type Note Provider Name and Address Organization Details Recorded Time 5 text/html Diabetes in PregnancyReported by PatientHPIFor review finger sticks, patient reportsfastin(130 one hour after meals). For context, patient reportsgestational diabetes. For control, patient reportstreated with metformin. For self care, patient reportsmonitoring glucose 4 times per day. jr ob routineReported by PatientHPIFor associated symptoms, patient reportscontractions (irregular)andvaginal discharge (increased)but reportsno abdominal pain,no cramping,normal movement,no bleeding,no vaginal/vulvar itching or irritation,no dysuria,no frequency,no urgency,no hematuria,no fever,no nausea,no emesis,no constipation,no diarrhea/loose stool,no edema,no visual changes,no headache,no dizziness, andno breathlessness.heartburnPt denies any tobacco, alcohol, or drug useROS as noted in the HPI HX-Pt restarted her metformin on 11/20/24 and was increased to 1000 on 11/25/24, pt is now taking 2000mg BIT Pt is taking AZO Brando Thomason MD [address] [place], [phone], [facility] 01/09/2025 10:39:56 5 text/html Diabetes in PregnancyReported by PatientHPIFor review finger sticks, patient reportsfastin(120 one hour after meals). For context, patient reportsgestational diabetes. For control, patient reportstreated with metformin. For self care, patient reportsmonitoring glucose 4 times per day. jr ob routineReported by PatientHPIFor associated symptoms, patient reportscramping,contraction s (irregular artemio reece), andvaginal discharge (increased)but reportsno abdominal pain,normal movement (slower),no bleeding,no vaginal/vulvar itching or irritation,no dysuria,no frequency,no urgency,no hematuria,no fever,no nausea,no emesis,no constipation,no diarrhea/loose stool,no edema,no visual changes,no headache,no dizziness, andno breathlessness.heartburn- improvedPt denies any tobacco, alcohol, or drug useROS as noted in the HPI Brando Thomason MD [address] [place] [address], [phone], [facility], [place] 01/15/2025 10:32:17 5 text/html jr post or tubalReported by PatientHPIFor associated symptoms, patient reportsconstipationbut reportsincision healing well,normal appetite,no nausea,pain improving,no fever,no lower extremity edema/pain, andno dysuria/urinary symptoms. For onset/timing, patient reportsdate of surgery: (01/22/25). For quality, patient reportsprocedure: (). Brando Thomason MD [address] [place] [address], [phone], [facility], [place] 01/28/2025 14:05:01 5 text/html VisitReported by PatientHPIFor onset/timing, patient reportsdate of delivery: (01/22/25). For quality, patient reportsrepeat c/s. For context, patient reportsgdm,feeding choice: breast, depression,good support from partner/family,resumed sexual activity yes, andresumed menstrual bleeding no. For associated symptoms, patient reportsno abnormal bleeding,no vaginal discharge,no pelvic pain,no constipation,no dysuria,no urinary incontinence,no fever, andno problems. For contraception plan, patient reportsdeclines contraception. Brando Thomason MD [address] [place] [address], [phone], [facility] 02/23/2025 12:51:04 OBGyn Episode Ob Episode Information Episode Created Date Number of Fetuses Patient Bloodtype Patient rh Status Prepregnancy Weight lbs Domestic Partner Domestic Partner Phone Father Name Press Operator [employer] Status 06/16/20 1 CLOSED Fetus Data First Name Last Name Admitted to NICU Weight (g) Sex Living Outcome Pediatric Complications Fetus ID Race Codes Race Delivery Type 4337.24 6704 M Full Term 6754 Jose Calculation Initial Jose Date Initial Exam Date Initial Exam Provider Initial Ultrasound Date Last Menstrual Period Date Ultra Sound Weeks Gestation 0 Eighteen To Twenty Week Jose Update Ultra Sound Date Fundal Height At Umbil Quickening Date Ultra Sound Latest Weeks Gestation Final Jose Confirmed By Final Jose Confirmed Date Final Jose Date Ultra Sound Latest Days Gestation 0 0 Menstrual History Last Menstrual Date Menses Monthly On Bcp Conception Prior Menses Frequency Hcg Plus Date Menarche Onset Age Delivery Information Delivery Date Delivery Type Labor Anesthesia Weeks Gestation Incision Type Labor Labor Length Hrs Delivered By Post Complications Tubal Sterilization Discharge Date Comments 1 [facility] Discharge Information Feeding Method Contraceptive Method Maternal HG B and HCT Levels Ob Episode Information Episode Created Date Number of Fetuses Patient Bloodtype Patient rh Status Prepregnancy Weight lbs Domestic Partner Domestic Partner Phone Father Name Press Operator [employer] Status 06/16/20 1 O Positive Ad CLOSED Fetus Data First Name Last Name Admitted to NICU Weight (g) Sex Living Outcome Pediatric Complications Fetus ID Race Codes Race Delivery Type Víctor hayes false 3146.79 45 M true Full Term none [id number] Problems Problem Notes GDMIVFtransfer on 05/20/24, e mbryo was 6 days, EDC 02/04/25GBS positive urineNSts Q sundaybpp every SundayRepeat ltcs Jan 7Athesia consult requested for 01/09/25Repeat with BTL scheduled for 01/22/25 @ 0700 Problem Name Start Date End Date Resolution Snomed Code Not e Subchorionic hematoma 08/14/2024 [id number] Normal in multigravida 06/16/2024 [id number] Jose Calculation Initial Jose Date Initial Exam Date Initial Exam Provider Initial Ultrasound Date Last Menstrual Period Date Ultra Sound Weeks Gestation 02/04/2025 06/16/2024 0 Eighteen To Twenty Week Jose Update Ultra Sound Date Fundal Height At Umbil Quickening Date Ultra Sound Latest Weeks Gestation Final Jose Confirmed By Final Jose Confirmed Date Final Jose Date Ultra Sound Latest Days Gestation 0 0 Pre-malini Flowsheet Flowsheet Date 06/16/2024 Agee Score Blood Edema Fundus Height Fundus Units Glucose Ketones Leukocytes Nitrite Labor Signs Protein Cervic Dilation Cervic Effacement Cervic Station Type Weight in lbs Pre/Post Dialysis Refused Weight 174.906904792122 BP Diastolic BP Location Tested BP Systolic BP Type 74 124 Fetus Heart Rate Present Fetus Movement A No Comments Flowsheet Date 06/19/2024 Agee Score Blood Edema Fundus Height Fundus Units Glucose Ketones Leukocytes Nitrite Labor Signs Protein Cervic Dilation Cervic Effacement Cervic Station Type Weight in lbs Pre/Post Dialysis Refused BP Diastolic BP Location Tested BP Systolic BP Type Fetus Heart Rate Present Fetus Movement Comments u/s on 06/19/24, JOSE 02/07/25, EGA 6.5, Normal cardiac activity @ 155 bpm. Very small subchorionic hemorrhages. No prior imaging studies containing the subchorionic hemorrhages for comparison to evaluate for interval change. Flowsheet Date 07/03/2024 Agee Score Blood Edema Fundus Height Fundus Units Glucose Ketones Leukocytes Nitrite Labor Signs Protein Cervic Dilation Cervic Effacement Cervic Station Type Weight in lbs Pre/Post Dialysis Refused BP Diastolic BP Location Tested BP Systolic BP Type Fetus Heart Rate Present Fetus Movement Comments u/s on 07/03/24, Single livin g intrauterine gestation.EGA based on crown-rump length of 2.4cm is 9.1. FHR 174. Small subchorionic hemorrhage. Flowsheet Date 07/07/2024 Agee Score Blood Edema Fundus Height Fundus Units Glucose Ketones Leukocytes Nitrite Labor Signs Protein Cervic Dilation Cervic Effacement Cervic Station Type Weight in lbs Pre/Post Dialysis Refused BP Diastolic BP Location Tested BP Systolic BP Type Fetus Heart Rate Present Fetus Movement Comments Flowsheet Date 07/10/2024 Agee Score Blood Edema Fundus Height Fundus Units Glucose Ketones Leukocytes Nitrite Labor Signs Protein Cervic Dilation Cervic Effacement Cervic Station Type Weight in lbs Pre/Post Dialysis Refused BP Diastolic BP Location Tested BP Systolic BP Type Fetus Heart Rate Present Fetus Movement Comments u/s on 07/10/24, EGA 10.1, ED D 02/04/25, Appropriate interval growth. Normal cardiac activity. Enlarging subchorionic hemorrhage since 07/03/24. Subchorionic hemorrhage extends inferiorly to the level of the cervix. Flowsheet Date 07/21/2024 Agee Score Blood Edema Fundus Height Fundus Units Glucose Ketones Leukocytes Nitrite Labor Signs Protein Cervic Dilation Cervic Effacement Cervic Station Type Weight in lbs Pre/Post Dialysis Refused 176.175075601654 BP Diastolic BP Location Tested BP Systolic BP Type 76 124 sitting Fetus Heart Rate Present Fetus Movement Comments NOB Flowsheet Date 07/21/2024 Agee Score Blood Edema Fundus Height Fundus Units Glucose Ketones Leukocytes Nitrite Labor Signs Protein Cervic Dilation Cervic Effacement Cervic Station Type Weight in lbs Pre/Post Dialysis Refused BP Diastolic BP Location Tested BP Systolic BP Type Fetus Heart Rate Present Fetus Movement Comments Flowsheet Date 07/22/2024 Agee Score Blood Edema Fundus Height Fundus Units Glucose Ketones Leukocytes Nitrite Labor Signs Protein Cervic Dilation Cervic Effacement Cervic Station Type Weight in lbs Pre/Post Dialysis Refused BP Diastolic BP Location Tested BP Systolic BP Type Fetus Heart Rate Present Fetus Movement Comments U/S on 07/21/24 , EDC-02/01/25, EGA-12.0, FHT-167, RADHA=7.311cm Flowsheet Date 07/31/2024 Agee Score Blood Edema Fundus Height Fundus Units Glucose Ketones Leukocytes Nitrite Labor Signs Protein Cervic Dilation Cervic Effacement Cervic Station none none Negative neg Type Weight in lbs Pre/Post Dialysis Refused 173.857750700857 BP Diastolic BP Location Tested BP Systolic BP Type 78 132 sitting Fetus Heart Rate Present Fetus Movement Comments vaginal bleeding,passing oneyda ts, cramping, back pain, dizziness Flowsheet Date 08/07/2024 Agee Score Blood Edema Fundus Height Fundus Units Glucose Ketones Leukocytes Nitrite Labor Signs Protein Cervic Dilation Cervic Effacement Cervic Station Type Weight in lbs Pre/Post Dialysis Refused BP Diastolic BP Location Tested BP Systolic BP Type Fetus Heart Rate Present Fetus Movement Comments u/s on 08/07/24, JOSE 02/04/25, EGA 14.1, RADHA = 5.34 cm3 Flowsheet Date 08/20/2024 Agee Score Blood Edema Fundus Height Fundus Units Glucose Ketones Leukocytes Nitrite Labor Signs Protein Cervic Dilation Cervic Effacement Cervic Station Type Weight in lbs Pre/Post Dialysis Refused BP Diastolic BP Location Tested BP Systolic BP Type Fetus Heart Rate Present Fetus Movement Comments u/s pn 08/20/24, FHR 149, RADHA= 1.093 cm3 Flowsheet Date 08/21/2024 Agee Score Blood Edema Fundus Height Fundus Units Glucose Ketones Leukocytes Nitrite Labor Signs Protein Cervic Dilation Cervic Effacement Cervic Station none trace Type Weight in lbs Pre/Post Dialysis Refused 176.948352206772 BP Diastolic BP Location Tested BP Systolic BP Type 64 120 Fetus Heart Rate Present A 156 Present Fetus Movement A No Comments heartburn Flowsheet Date 09/18/2024 Agee Score Blood Edema Fundus Height Fundus Units Glucose Ketones Leukocytes Nitrite Labor Signs Protein Cervic Dilation Cervic Effacement Cervic Station Type Weight in lbs Pre/Post Dialysis Refused BP Diastolic BP Location Tested BP Systolic BP Type Fetus Heart Rate Present Fetus Movement Comments Flowsheet Date 09/18/2024 Agee Score Blood Edema Fundus Height Fundus Units Glucose Ketones Leukocytes Nitrite Labor Signs Protein Cervic Dilation Cervic Effacement Cervic Station Type Weight in lbs Pre/Post Dialysis Refused BP Diastolic BP Location Tested BP Systolic BP Type Fetus Heart Rate Present Fetus Movement Comments Flowsheet Date 09/18/2024 Agee Score Blood Edema Fundus Height Fundus Units Glucose Ketones Leukocytes Nitrite Labor Signs Protein Cervic Dilation Cervic Effacement Cervic Station 20 cm none trace Negative trace Type Weight in lbs Pre/Post Dialysis Refused Weight 178.527572504148 BP Diastolic BP Location Tested BP Systolic BP Type 64 118 sitting Fetus Heart Rate Present A 148 Present Fetus Movement A Yes Comments glucose today, heartburn Flowsheet Date 09/22/2024 Agee Score Blood Edema Fundus Height Fundus Units Glucose Ketones Leukocytes Nitrite Labor Signs Protein Cervic Dilation Cervic Effacement Cervic Station Type Weight in lbs Pre/Post Dialysis Refused BP Diastolic BP Location Tested BP Systolic BP Type Fetus Heart Rate Present Fetus Movement Comments u/s on 09/18/24, JOSE 02/04/25, EGA 20.1, Appropriate growth of the fetus since the first trimester u/s. Technically very difficult evaluation of the anatomy due to maternal body habitus. Consider short- term reevaluation of the heart, spine and bladder. Remaining anatomy appropriate. Flowsheet Date 10/16/2024 Agee Score Blood Edema Fundus Height Fundus Units Glucose Ketones Leukocytes Nitrite Labor Signs Protein Cervic Dilation Cervic Effacement Cervic Station Type Weight in lbs Pre/Post Dialysis Refused BP Diastolic BP Location Tested BP Systolic BP Type Fetus Heart Rate Present Fetus Movement Comments Flowsheet Date 10/16/2024 Agee Score Blood Edema Fundus Height Fundus Units Glucose Ketones Leukocytes Nitrite Labor Signs Protein Cervic Dilation Cervic Effacement Cervic Station 24 cm none trace Negative neg Type Weight in lbs Pre/Post Dialysis Refused Weight 181.874656041888 BP Diastolic BP Location Tested BP Systolic BP Type 62 112 sitting Fetus Heart Rate Present A 144 Present Fetus Movement A Yes Comments heartburn Flowsheet Date 10/30/2024 Agee Score Blood Edema Fundus Height Fundus Units Glucose Ketones Leukocytes Nitrite Labor Signs Protein Cervic Dilation Cervic Effacement Cervic Station Type Weight in lbs Pre/Post Dialysis Refused BP Diastolic BP Location Tested BP Systolic BP Type Fetus Heart Rate Present Fetus Movement Comments u/s on 10/16/24, EGA 23.6, JOSE 02/06/25, No acute abnormality, Breech, Following structures visualized and unremarkabel in appearance: Kidneys, spine and four- chamber heart. Flowsheet Date 11/13/2024 Agee Score Blood Edema Fundus Height Fundus Units Glucose Ketones Leukocytes Nitrite Labor Signs Protein Cervic Dilation Cervic Effacement Cervic Station 28 cm none trace Artemio Reece trace Type Weight in lbs Pre/Post Dialysis Refused Weight 181.989546391264 BP Diastolic BP Location Tested BP Systolic BP Type 60 118 Fetus Heart Rate Present A 160 Present Fetus Movement A Yes Comments low back pain, heartburn, co nstipation, dizzinessBS with CGM- 50-180 Flowsheet Date 11/19/2024 Agee Score Blood Edema Fundus Height Fundus Units Glucose Ketones Leukocytes Nitrite Labor Signs Protein Cervic Dilation Cervic Effacement Cervic Station 29 cm none trace Negative [place] Reece neg Type Weight in lbs Pre/Post Dialysis Refused Weight 179.620640488768 BP Diastolic BP Location Tested BP Systolic BP Type 64 112 sitting Fetus Heart Rate Present A 152 Present Fetus Movement A Yes Comments heartburn,dizziness,heartbur n, BS running 40s,50s-167 Flowsheet Date 11/25/2024 Agee Score Blood Edema Fundus Height Fundus Units Glucose Ketones Leukocytes Nitrite Labor Signs Protein Cervic Dilation Cervic Effacement Cervic Station 33 cm none trace Type Weight in lbs Pre/Post Dialysis Refused Weight 181.625435554448 BP Diastolic BP Location Tested BP Systolic BP Type 66 L arm 118 Fetus Heart Rate Present A 156 Present Fetus Movement A Yes Comments BS: 126 for 3d average, high of 240.heartburn Flowsheet Date 12/09/2024 Agee Score Blood Edema Fundus Height Fundus Units Glucose Ketones Leukocytes Nitrite Labor Signs Protein Cervic Dilation Cervic Effacement Cervic Station Type Weight in lbs Pre/Post Dialysis Refused BP Diastolic BP Location Tested BP Systolic BP Type Fetus Heart Rate Present Fetus Movement Comments u/s on 12/09/24, vertex, plac enta anterior, JOSE 02/03/25, EGA 32.0, MARLENI 14.69 Flowsheet Date 12/12/2024 Agee Score Blood Edema Fundus Height Fundus Units Glucose Ketones Leukocytes Nitrite Labor Signs Protein Cervic Dilation Cervic Effacement Cervic Station 33 cm none none Negative [place] Reece trace 1cm 10% -4 Type Weight in lbs Pre/Post Dialysis Refused Weight 181.047437598010 BP Diastolic BP Location Tested BP Systolic BP Type 68 118 sitting Fetus Heart Rate Present A 166 Present Fetus Movement A Decreased Comments top of abd feels bruised, cr amping off and on, diarrhea, dizziness,sob. Fasting BS-115 after meals running 180-200 Flowsheet Date 12/18/2024 Agee Score Blood Edema Fundus Height Fundus Units Glucose Ketones Leukocytes Nitrite Labor Signs Protein Cervic Dilation Cervic Effacement Cervic Station none trace Negative [place] Reece neg Type Weight in lbs Pre/Post Dialysis Refused Weight 180.404459395750 BP Diastolic BP Location Tested BP Systolic BP Type 68 112 sitting Fetus Heart Rate Present A 156 Present Fetus Movement Comments abdominal pain/cramping, sob , heartburn, vaginal pressure occ BS fastinf 111-126 hour after meals 122-184 Flowsheet Date 12/24/2024 Agee Score Blood Edema Fundus Height Fundus Units Glucose Ketones Leukocytes Nitrite Labor Signs Protein Cervic Dilation Cervic Effacement Cervic Station Type Weight in lbs Pre/Post Dialysis Refused BP Diastolic BP Location Tested BP Systolic BP Type Fetus Heart Rate Present Fetus Movement Comments u/s on 12/24/24, BPP 8/8, MARLENI 21.26, vertex, FHR 145 Flowsheet Date 12/31/2024 Agee Score Blood Edema Fundus Height Fundus Units Glucose Ketones Leukocytes Nitrite Labor Signs Protein Cervic Dilation Cervic Effacement Cervic Station none [place] Reece trace Type Weight in lbs Pre/Post Dialysis Refused Weight 178.170993190494 BP Diastolic BP Location Tested BP Systolic BP Type 72 128 Fetus Heart Rate Present A 148 Present Fetus Movement A Yes Comments cramping, irreg. contraction s, vaginal pressure with prolonged standing, s.o.b., BS fasting-96, 1 hr pp- 130's Flowsheet Date 12/31/2024 Agee Score Blood Edema Fundus Height Fundus Units Glucose Ketones Leukocytes Nitrite Labor Signs Protein Cervic Dilation Cervic Effacement Cervic Station Type Weight in lbs Pre/Post Dialysis Refused BP Diastolic BP Location Tested BP Systolic BP Type Fetus Heart Rate Present Fetus Movement Comments Flowsheet Date 01/03/2025 Agee Score Blood Edema Fundus Height Fundus Units Glucose Ketones Leukocytes Nitrite Labor Signs Protein Cervic Dilation Cervic Effacement Cervic Station Type Weight in lbs Pre/Post Dialysis Refused BP Diastolic BP Location Tested BP Systolic BP Type Fetus Heart Rate Present Fetus Movement Comments u/s on 12/31/24, BPP 8/8, MARLENI 16.66, vertex, JOSE 02/04/25, EGA 35 Flowsheet Date 01/07/2025 Agee Score Blood Edema Fundus Height Fundus Units Glucose Ketones Leukocytes Nitrite Labor Signs Protein Cervic Dilation Cervic Effacement Cervic Station Type Weight in lbs Pre/Post Dialysis Refused BP Diastolic BP Location Tested BP Systolic BP Type Fetus Heart Rate Present Fetus Movement Comments GBS Positive on UA cultureOB records sent Flowsheet Date 01/07/2025 Agee Score Blood Edema Fundus Height Fundus Units Glucose Ketones Leukocytes Nitrite Labor Signs Protein Cervic Dilation Cervic Effacement Cervic Station Type Weight in lbs Pre/Post Dialysis Refused BP Diastolic BP Location Tested BP Systolic BP Type Fetus Heart Rate Present Fetus Movement Comments u/s on 01/07/25, BPP 8/8, MARLENI 16.36, vertex Flowsheet Date 01/09/2025 Agee Score Blood Edema Fundus Height Fundus Units Glucose Ketones Leukocytes Nitrite Labor Signs Protein Cervic Dilation Cervic Effacement Cervic Station none trace Negative Artemio Reece trace Type Weight in lbs Pre/Post Dialysis Refused Weight 180.998003555829 BP Diastolic BP Location Tested BP Systolic BP Type 70 110 sitting Fetus Heart Rate Present A 156 Present Fetus Movement A Yes Comments increased vaginal discharge, heartburn, Group B positive on urine culture. Flowsheet Date 01/14/2025 Agee Score Blood Edema Fundus Height Fundus Units Glucose Ketones Leukocytes Nitrite Labor Signs Protein Cervic Dilation Cervic Effacement Cervic Station Type Weight in lbs Pre/Post Dialysis Refused BP Diastolic BP Location Tested BP Systolic BP Type Fetus Heart Rate Present Fetus Movement Comments u/s on 01/14/25, BPP 8/8, nicolle glenys, MARLENI 11.87 Flowsheet Date 01/15/2025 Agee Score Blood Edema Fundus Height Fundus Units Glucose Ketones Leukocytes Nitrite Labor Signs Protein Cervic Dilation Cervic Effacement Cervic Station none [place] Reece trace Type Weight in lbs Pre/Post Dialysis Refused Weight 179.157426695816 BP Diastolic BP Location Tested BP Systolic BP Type 70 L arm 122 Fetus Heart Rate Present A 144 Present Fetus Movement A Yes Comments vaginal discharge, mild hear tburn, slower FM, crampingBS fasting 99, 1 hr PP 120 average. Flowsheet Date 01/28/2025 Agee Score Blood Edema Fundus Height Fundus Units Glucose Ketones Leukocytes Nitrite Labor Signs Protein Cervic Dilation Cervic Effacement Cervic Station Type Weight in lbs Pre/Post Dialysis Refused Weight 171.966049322307 BP Diastolic BP Location Tested BP Systolic BP Type 78 L arm 122 Fetus Heart Rate Present Fetus Movement Comments Menstrual History Last Menstrual Date Menses Monthly On Bcp Conception Prior Menses Frequency Hcg Plus Date Menarche Onset Age Delivery Information Delivery Date Delivery Type Labor Anesthesia Weeks Gestation Incision Type Labor Labor Length Hrs Delivered By Post Complications Tubal Sterilization Discharge Date Comments 5 None [facility] 38.1 Low Transvers e Brando Thomason MD None false Discharge Information Feeding Method Contraceptive Method Maternal HG B and HCT Levels Combination Ob Episode Information Episode Created Date Number of Fetuses Patient Bloodtype Patient rh Status Prepregnancy Weight lbs Domestic Partner Domestic Partner Phone Father Name Press Operator [employer] Status 06/16/20 24 1 CLOSED Fetus Data First Name Last Name Admitted to NICU Weight (g) Sex Living Outcome Pediatric Complications Fetus ID Race Codes Race Delivery Type 4479.22 1 F Full Term 6753 Jose Calculation Initial Jose Date Initial Exam Date Initial Exam Provider Initial Ultrasound Date Last Menstrual Period Date Ultra Sound Weeks Gestation 0 Eighteen To Twenty Week Jose Update Ultra Sound Date Fundal Height At Umbil Quickening Date Ultra Sound Latest Weeks Gestation Final Jose Confirmed By Final Jose Confirmed Date Final Jose Date Ultra Sound Latest Days Gestation 0 0 Menstrual History Last Menstrual Date Menses Monthly On Bcp Conception Prior Menses Frequency Hcg Plus Date Menarche Onset Age Delivery Information Delivery Date Delivery Type Labor Anesthesia Weeks Gestation Incision Type Labor Labor Length Hrs Delivered By Post Complications Tubal Sterilization Discharge Date Comments 5 [facility]-Ep idural 39.3 gest. ht n in 3rd trimester emerg. , pp transfusi on, Discharge Information Feeding Method Contraceptive Method Maternal HG B and HCT Levels Ob Episode Information Episode Created Date Number of Fetuses Patient Bloodtype Patient rh Status Prepregnancy Weight lbs Domestic Partner Domestic Partner Phone Father Name Press Operator [employer] Status 06/16/20 24 1 CLOSED Fetus Data First Name Last Name Admitted to NICU Weight (g) Sex Living Outcome Pediatric Complications Fetus ID Race Codes Race Delivery Type 3742.13 4 M Full Term 6751 VAGINAL Jose Calculation Initial Jose Date Initial Exam Date Initial Exam Provider Initial Ultrasound Date Last Menstrual Period Date Ultra Sound Weeks Gestation 0 Eighteen To Twenty Week Jose Update Ultra Sound Date Fundal Height At Umbil Quickening Date Ultra Sound Latest Weeks Gestation Final Jose Confirmed By Final Jose Confirmed Date Final Jose Date Ultra Sound Latest Days Gestation 0 0 Menstrual History Last Menstrual Date Menses Monthly On Bcp Conception Prior Menses Frequency Hcg Plus Date Menarche Onset Age Delivery Information Delivery Date Delivery Type Labor Anesthesia Weeks Gestation Incision Type Labor Labor Length Hrs Delivered By Post Complications Tubal Sterilization Discharge Date Comments 1 [facility] idural 40.5 cyto induction , pit, SROM, Discharge Information Feeding Method Contraceptive Method Maternal HG B and HCT Levels Ob Episode Information Episode Created Date Number of Fetuses Patient Bloodtype Patient rh Status Prepregnancy Weight lbs Domestic Partner Domestic Partner Phone Father Name Press Operator [employer] Status 06/16/20 24 1 CLOSED Fetus Data First Name Last Name Admitted to NICU Weight (g) Sex Living Outcome Pediatric Complications Fetus ID Race Codes Race Delivery Type 3742.13 4 F Full Term [id number] VAGINAL Jose Calculation Initial Jose Date Initial Exam Date Initial Exam Provider Initial Ultrasound Date Last Menstrual Period Date Ultra Sound Weeks Gestation 0 Eighteen To Twenty Week Jose Update Ultra Sound Date Fundal Height At Umbil Quickening Date Ultra Sound Latest Weeks Gestation Final Jose Confirmed By Final Jose Confirmed Date Final Jose Date Ultra Sound Latest Days Gestation 0 0 Menstrual History Last Menstrual Date Menses Monthly On Bcp Conception Prior Menses Frequency Hcg Plus Date Menarche Onset Age Delivery Information Delivery Date Delivery Type Labor Anesthesia Weeks Gestation Incision Type Labor Labor Length Hrs Delivered By Post Complications Tubal Sterilization Discharge Date Comments 3 Regional-Ep idural 40.5 cyto induction , pit, AROMpostp artum cervical prolapsep assed away on 03/08/14 Discharge Information Feeding Method Contraceptive Method Maternal HG B and HCT Levels
--- OUTSIDE RECORDS SUMMARY | 2025-05-16 09:18 | XMS_ITS | Continuity of Care Document ---
Author Organization [facility] [place], [place], [facility] ([facility]) Address [address] [place] [address] Assessment No assessment recorded. Plan of Treatment Reminders Order Date Submit Date Provider Last Modified By Organization Details Last Modified Time Details Appointments None record ed. Lab None record ed. Referral None record ed. Procedures None record ed. Surgeries None record ed. Imaging None record ed. Medication Orders None record ed. Patient TargetsNo targets recorded. Patient InstructionsNo instructions recorded. Reason for Referral None Reported. Results Created Date Observation Date Name Description Value Unit Range Abnormal Flag Note LastModifiedBy Organization Detail LastModifiedTime 01/31/20 25 01/14/2025 US, obste tric, bioph ysica l profi le No observ ation record ed. [email or web address] [facility] [address] [place], [address], 01/30/2025 14:49:56 Result Notes None recorded. Problems Name Problem SNOMED Code Status Onset Date Resolution Date Notes Provider Name and Address Organization Details Recorded Time Normal in multigrav earth 716604573822 106 Completed 2023 LG [facility] 17:41:27 Normal in multigrav earth 650527454177 106 Active 2023 LG [facility]an [facility] 17:41:27 Subchorio david hematoma 421230015 Completed 2024 LG milan [facility] 5 17:43:10 Subchorio david hematoma 735664282 [facility] 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, ParrisL.CYaron 13:53:15 Surgical follow-up 020511424 Active 2024 LG BANUELOS [facility] 13:53:17 care status 379704495 Active 2024 LG BANUELOS [facility] 12:28:31 Problem Notes None recorded. Procedures Surgical History Date Name Laterality Status Provider Name and Address Organization Details Recorded Time 025 section completed LG HANY [facility], LYaronLYaronCYaron 01/28/2025 13:48:03 025 Date of Last Pap Smear completed [facility] 09/18/2024 10:23:52 025 sampling of cervix for Papanicolaou smear completed KIMBERLY SONNY [facility] 09/18/2024 10:24:43 05/24/2 021 ligation of bilateral fallopian tubes completed [facility] 06/16/2024 13:13:[address] [facility] 06/16/2024 13:14:[address] [facility], L.L.CYaron 06/16/2024 13:14:09 laparoscopic sleeve gastrectomy completed [facility] L.L.CY[facility] 06/16/2024 13:12:33 tuboplasty for sterilization reversal completed [facility], LYaronLYaronCYaron 06/16/2024 13:13:37 tonsillectomy completed [facility] CLAIRWYPRATIBHAThe [facility], LYaronLYaronCYaron 07/31/2024 14:40:37 Imaging Results None recorded. Procedure Notes None recorded. Medical Equipment None Reported. Allergies Allergen ID Allergen Name Allergen Category Reaction Reaction Severity Criticality Documentation Date Start Date Code Code System Note Provider Name and Address Organization Details Recorded Time 20949 Latex Exam Gloves medicatio n rash Not available Not available 01/13/2023 React ion: Rash; Comme nt: Recor ded 01/05 9:41A M by Luis Prather, Offic e Visit ; Promo yoselin; Torito shen ce: *; Reaso n: Drug aller gy; ; Not Available [facility] 02:23:49 Medications Name Sig Start [...] Organization Details Last Updated DateTime 165.1 cm 27.5 kg/m2 30990.7 4 g 18 /min 97.9 [degF] 76 /min 98 % 126/76 mm[Hg] LG BANUELOS [facility] 12:19:53 Social History Question Answer Notes LastModified by Vingle Details LastModified Time Tobacco Smoking Status Never Smoker LG BANUELOS [facility] 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 Gynecological History Statement/Question Response Abnormal Pap N Date of Last Pap Smear 07/21/2024 Obstetrics History GPAL:G 5 P 5 0 0 5 Type Value Full Term 5 Living 5 Total 5 Immunizations Vaccine Type Date Status Note Provider Nam e and Address Organization Details Recorded Time IPV 3 completed LG milan [facility] 06/16/2024 13:32:12 IPV 9 [facility] 06/16/2024 13:32:13 IPV 4 completed LG milan [facility] 06/16/2024 13:32:13 IPV 2 completed LG milan [facility] 06/16/2024 13:32:13 MMR 8 completed LG milan [facility] 06/16/2024 13:32:13 MMR 3 completed LG milan [facility] 06/16/2024 13:32:13 COVID-19 vaccine, vector-nr, rS-Ad26, PF, 0.5 mL 1 completed LG VIN null, [facility] 06/16/2024 13:32:13 Tdap 8 completed LG VIN null, [facility] 06/16/2024 13:32:13 Tdap 3 completed LG VIN null, [facility] 06/16/2024 13:32:13 Hep B, adolescent or pediatric 3 completed LG IVN null, [facility] 06/16/2024 13:32:13 Hep B, adolescent or pediatric 3 completed LG VIN null, [facility] 06/16/2024 13:32:13 Hep B, adolescent or pediatric 2 completed LG VIN null, [facility] 06/16/2024 13:32:13 Hib (PRP-T) [address] [facility], [facility] 06/16/2024 13:32:13 Hib (PRP-T) [address] [facility], [facility] 06/16/2024 13:32:13 Hib (PRP-T) [address] [facility], [facility] 06/16/2024 13:32:13 Hib (PRP-T) [address] [facility], [facility] 06/16/2024 13:32:13 meningococcal MCV4P 8 completed LGSANJUANITA HANY null, [facility] 06/16/2024 13:32:13 DTaP 3 completed LG BANUELOS null, [facility] 06/16/2024 13:32:13 DTaP 8 completed LG BANUELOS null, [facility] 06/16/2024 13:32:13 DTaP 3 completed LG HANY null, [facility] 06/16/2024 13:32:13 DTaP 4 completed LG HANY null, [facility] 06/16/2024 13:32:13 DTaP 2 completed LG HANY null, [facility] 06/16/2024 13:32:13 Influenza, MDCK, trivalent, PF 0 completed LG BANUELOS null, [facility] 06/16/2024 13:32:13 Influenza, split virus, trivalent, preservative 8 completed Not Available [facility] 01/13/2023 02:32:46 Past Encounters Encounter ID Performer Location Encounter Start Date Encounter Closed Date Diagnosis/Indication Diagnosis SNOMED-CT Code Diagnosis ICD10 Code Diagnosis IMO Codes Diagnosis Note [id number] Brando Thomason MD [facility] ([facility]) [address] [place] [phone] 01/28/2025 13:29:00 01/28/2025 14:08:05 Deliveries by [id number] Surgical follow-up 26168 4000 Z48.02 [id number] Brando Thomason MD [facility] ([facility]) [address] [place] [phone] 02/23/2025 11:39:21 02/23/2025 15:34:39 care status [id number] Z39.2 [id number] Health Concerns Section Related Observation LastModified by Organization Detai ls LastModified Time None Recorded Concern Status LastModified by Organization Details LastModified Time None Recorded Payers Encounter Date Sequence Insurance Name Policy Number Policy Brandon Covered Member ID Brandon Member ID Guarantor Name 02/23/2025 1 [employer] [id number] 1 Amanda Brock [id number] Amanda Brock Notes Date Note Type Note Provider Name and Address Organization Details Recorded Time 02/23/2025 text/html VisitReported by PatientHPIFor onset/timing, patient reportsdate of delivery: (01/22/25). For quality, patient reportsrepeat c/s. For context, patient reportsgdm,feeding choice: breast, depression,good support from partner/family,resume d sexual activity yes, andresumed menstrual bleeding no. For associated symptoms, patient reportsno abnormal bleeding,no vaginal discharge,no pelvic pain,no constipation,no dysuria,no urinary incontinence,no fever, andno problems. For contraception plan, patient reportsdeclines contraception. Brando Thomason MD [address] [place] [address], [phone], [facility], [place] 02/23/2025 12:51:04 OBGyn Episode No OBEpisode recorded.
--- NOTE | 2025-05-16 09:20 | W.ED.GENADLT ---
HPI - General Adult General: Chief complaint: Vaginal Bleeding Stated complaint: Heavy Bleeding Dizzy Tired Time Seen by Provider: 05/16/25 09:16 Source: patient Mode of arrival: ambulatory Limitations: no limitations History of Present Illness: 35-year-old female who states she has been having heavy vaginal bleeding for the last 2 days. She states she gave 4 months ago and this is her first menstruation since then. States she is going through multiple pads. Denies any clots she denies any pain denies any fevers. Has had some slight lightheadedness Related Data Home Medications ?Medication ?Instructions ?Recorded ?Confirmed Iron (ferrous sulfate) 1 tab PO DAILY 11/16/24 12/26/24 ttxqyuxr-kea-Hb-FA 1 mg 1 tab PO DAILY 11/16/24 12/26/24 tablet Previous Rx's ?Medication ?Instructions ?Recorded ibuprofen 800 mg tablet 800 mg PO TID #45 tabs 01/23/25 Allergies Allergy/AdvReac Type Severity Reaction Status Date / Time latex Allergy ALGY-Hives Verified 12/26/24 21:08 [facility] ED PFSH: Medical History (Updated 05/16/25 @ 09:50 by Kisha Amezquita MD) Bleeding in early Family History Denies family history of Ovarian cancer Diabetes Heart disease Breast cancer Hypertension Uterine cancer Thyroid disease Stroke Social History Smoking and tobacco/nicotine status: former use of tobacco/nicotine (VAPE 06/2023 CIG 2013) Physical Exam Const: COMMON NORMALS: no acute distress, patient oriented x3 and healthy appearing HENMT: COMMON NORMALS: normocephalic and atraumatic HEAD & SCALP: normocephalic and atraumatic Neck/C-Spine: COMMON NORMALS: full ROM and supple Chest: COMMONS NORMALS: normal inspection of the chest Resp: COMMON NORMALS: normal respiratory effort Cardio: COMMON NORMALS: regular rate, regular rhythm and No murmurs present (Cardio) RATE: regular rate RHYTHM: regular rhythm GI: COMMON NORMALS: Normal to inspection, nondistended, normoactive bowel sounds present, Soft to palpation, non-tender and no masses PALPATION: Yes Soft to palpation Extremity: COMMON NORMALS: normal to inspection and full ROM Neuro: COMMON NORMALS: patient oriented x3, moves all extremities and no focal motor deficits Psych: COMMON NORMALS: mental status grossly normal, Normal thought process present and cooperative THOUGHT PROCESS: Normal thought process present Skin: COMMON NORMALS: no rashes or lesions noted and no wounds GENERAL SKIN EXAM: no rashes or lesions noted Course Vital Signs: Vital signs: Vital Signs Temperature 97.7 F 05/16/25 09:23 Pulse Rate 100 05/16/25 09:23 Respiratory Rate 16 05/16/25 09:23 Blood Pressure 116/78 05/16/25 09:23 Pulse Oximetry 100 05/16/25 09:23 Oxygen Delivery Me thod Room Air 05/16/25 09:23 [facility] - General Adult Medical Decision Making Patient presents here with vaginal bleeding for likely her menstruation. She is not test here was negative. This is her first menstruation since having a baby 4 months ago no signs of retained products as she is 4 months from delivery. Hemoglobin here is in normal range she is stable for discharge follow-up PCP return if worsening. Lab Data I reviewed the patient's lab results. 05/16/25 09:26 05/16/25 09:26 Laboratory Results WBC 5.99 10^3/uL (3.29-11.43) 05/16/25 09:26 RBC 4.56 10^6/uL (3.85-5.65) 05/16/25 09:26 Hgb 11.60 g/dL (11.27-16.99) 05/16/25 09:26 Hct 36.0 % (36-47) 05/16/25 09:26 MCV 78.9 fl (85-98) L 05/16/25 09:26 MCH 25.4 pg (27-33) L 05/16/25 09: MCHC 32.2 g/dL (30-55) 05/16/25 09: RDW 12.3 % (12.1-15.1) 05/16/25 09:26 Plt Count 257 10^3/cmm (157-399) 05/16/25 09:26 MPV 11.5 fL (7.4-10.4) H 05/16/25 09:26 Neut % (Auto) 54.6 % 05/16/25 09:26 Lymph % (Auto) 33.7 % 05/16/25 09:26 Mason % (Auto) 8.5 % 05/16/25 09:26 Eos % (Auto) 1.5 % 05/16/25 09:26 Baso % (Auto) 1.5 % 05/16/25 09:26 Neut # (Auto) 3.27 10^3/uL (1.8-7.7) 05/16/25 09:26 Lymph # (Auto) 2.0 10^3/uL (0.8-4.8) 05/16/25 09:26 Mason # (Auto) 0.5 10^3/uL (0.2-0.9) 05/16/25 09:26 Eos # (Auto) 0.1 10^3/uL (0.0-0.8) 05/16/25 09:26 Baso # (Auto) 0.1 10^3/uL (0.0-0.1) 05/16/25 09:26 Nucleated RBC % (auto) 0 % 05/16/25 09:26 Nucleated RBCs # 0.0 /100WBC 05/16/25 09:26 Ser , Semi-Qnt < 1.00 mIU/mL 05/16/25 09:26 No radiology studies performed this visit Discharge Plan Discharge Patient Disposition: Home Clinical Impression: Vaginal bleeding Condition: Stable Prescriptions: No Action ibuprofen 800 mg Tablet 800 mg PO TID Qty: 45 0RF Iron (ferrous sulfate) 1 tab PO DAILY unyqkcmw-ssv-Qs-FA 1 mg Tablet 1 tab PO DAILY Discharge Orders: Discharge ED (Routine); Ordered 05/16/25 Ordered By: Kisha Amezquita Referrals: Brando Thomason MD [Primary Care Provider, [facility]] Discharge Diet: Advance as tolerated Discharge Activity: Resume usual activity Patient Instructions: Abnormal (Dysfunctional) Uterine Bleeding (ED) Print Language: Bangladeshi Coding Level of Care Code ED [facility] Director for Carlos Eduardo Bright
[2025-05-16 09:23] VITALS: BP 116/78; PULSE 100; RESP 16; TEMP 36.5; O2SAT 100; BMI 28.9
[2025-05-16 09:30] LABS: Hematocrit 36.0 % (36-47); Hemoglobin 11.60 g/dL (11.27-16.99); Mean Corpuscular HGB Conc 32.2 g/dL (30-55); Mean Corpuscular Hemoglobin 25.4 pg (27-33); Mean Corpuscular Volume 78.9 fl (85-98); Nucleated Red Blood Cells % 0 %; Platelet Count 257 10^3/cmm (157-399); Red Blood Count 4.56 10^6/uL (3.85-5.65); White Blood Count 5.99 10^3/uL (3.29-11.43)
[2025-05-16 09:50] VITALS: BP 116/61; PULSE 87; O2SAT 98
--- NOTE | 2025-05-16 09:50 | PC.NURSE ---
pt requesting to go home, states does not want to finish remainder of IV fluids. ED provider notified
[2025-05-16 10:00] LABS: Alanine Aminotransferase 21 U/L (0-33); Albumin Level 4.4 g/dL (3.5-5.2); Alkaline Phosphatase 98 U/L (35-105); Anion Gap 15.8 (5-19); Aspartate Amino Transferase 22 U/L (0-32); Blood Urea Nitrogen 13 mg/dL (6-20); Calcium 9.1 mg/dL (8.5-10.5); Carbon Dioxide 25 mmol/L (22-29); Chloride 101 mmol/L (98-107); Globulin 2.9 g/dL (1.3-4.6); Glucose 83 mg/dL (65-115); Osmolality Calculated 285 mOsm/kg (285-295); Potassium 3.8 mmol/L (3.5-5.1); Sodium 138 mmol/L (136-145); Total Protein 7.3 g/dL (6.6-8.7)
== END 2025-05-16 09:54 | disposition home or self-care (01) ==
PROVIDERS: Emergency Provider Emergency Medicine; PCP Family Medicine
DX: N93.9 Abnormal uterine and vaginal bleeding, unspecified (principal)
CPT/HCPCS: 36415; 80053; 84702; 85025; 99283; J7030

== ENCOUNTER → 2025-06-03 14:53 | Outpatient (BNVA) | payer OTHER, SELFPAY | PROVIDERS: PCP Family Medicine; Visit Provider Internal Medicine Endocrinology, Diabetes & Metabolism | DX: E88.810 Metabolic syndrome (principal) | CPT/HCPCS: 36415; 80061; 83036; 84403 ==